=== PATIENT | female | born 1960 | race African-American/Black ===

== ENCOUNTER 2016-07-27 20:45 | Emergency (ER) | payer MEDICARE, MEDICAID ==
[~2016-07-27] VITALS: Ht 149.9 cm; Wt 53.0 kg
[~2016-07-27 20:45] MED LIST: CARI350T PO; CHOL50006 PO; EFAV1TAB3; FURO-151 PO; LISINOPRIL PO; METO-300 PO; MULT-1146 PO; OXYC-662 PO; PROAIR INHALER INH; VITAMIN B12 IM; [UNRECOGNIZED DRUG - CODE] SQ
[2016-07-27] MEDS ORDERED: HYDROCODONE/ACETAMINOPHEN 10/325MG TABLET PO ONE (23:15)
[2016-07-27 23:51] VITALS: BP 110/64
== END 2016-07-27 23:56 | disposition home or self-care (01) ==
LOC: ER 20:49
DX: K40.90 Unilateral inguinal hernia, without obstruction or gangrene, not specified as recurrent (principal); I11.0 Hypertensive heart disease with heart failure; I50.9 Heart failure, unspecified; Z98.51 Tubal ligation status; Z88.2 Allergy status to sulfonamides; Z91.041 Radiographic dye allergy status; Z79.899 Other long term (current) drug therapy
CPT/HCPCS: 99283

== ENCOUNTER 2016-08-12 09:31 | Emergency (ER) | payer MEDICARE, MEDICAID ==
[~2016-08-12] VITALS: Ht 165.1 cm; Wt 60.0 kg
[2016-08-12] MEDS ORDERED: MEGE400O PO (10:33)
[2016-08-12] MEDS ORDERED: DEXAMETHASONE 10MG/ML 1ML VIAL IM ONE (11:15)
[2016-08-12] MEDS ORDERED: KETOROLAC 60MG/2ML VIAL IM ONE (11:15)
[2016-08-12] MEDS ORDERED: LORAZEPAM 0.5MG TABLET PO ONE (11:15)
[2016-08-12 12:56] VITALS: BP 152/83
== END 2016-08-12 14:26 | disposition home or self-care (01) ==
LOC: ER 09:38
DX: M54.40 Lumbago with sciatica, unspecified side (principal); I11.0 Hypertensive heart disease with heart failure; I50.9 Heart failure, unspecified; Z88.2 Allergy status to sulfonamides; Z91.041 Radiographic dye allergy status; Z91.013 Allergy to seafood; Z79.899 Other long term (current) drug therapy; Z98.51 Tubal ligation status
CPT/HCPCS: 96372; 99284; J1100; J1885

== ENCOUNTER 2019-08-29 20:42 | Emergency (ER) | payer MEDICARE, MEDICAID ==
[~2019-08-29] VITALS: Ht 149.9 cm; Wt 63.0 kg
[~2019-08-29 20:42] MED LIST changes: -CARI350T PO; +CARI350T28 PO; +MEGE400O PO; -METO-300 PO; +METO-411 PO
[2019-08-29 22:59] LABS: BASOPHILS % 0.7 % (0.0-2.0); HEMATOCRIT. 40.6 % (36.0-48.0); HEMOGLOBIN. 13.6 g/dL (12.0-16.0); LYMPHOCYTES % 45.1 % (20.0-50.0); MEAN CORPUSCULAR HEMOGLOBIN 29.8 pg (28.0-32.0); MEAN CORPUSCULAR VOLUME 89.3 fL (81.0-99.0); MEAN PLATELET VOLUME 8.4 fl (7.4-10.4); MONOCYTES % 6.5 % (2.0-8.0); NEUTROPHILS % 45.7 % (40.0-76.0); PLATELET 341 x1000/uL (130-400); RED BLOOD CELL COUNT 4.55 mill/uL (4.2-5.4); RED CELL DISTRIBUTION WIDTH 14.4 % (11.6-14.6)
[2019-08-29 23:05] LABS: CHLORIDE 103 mEq/L (98-107)
[2019-08-29] MEDS ORDERED: IBUPROFEN 600MG TABLET PO STA (23:34)
[2019-08-29] MEDS ORDERED: ALBUTEROL 6.7GM HFA INHALER ORI ONE (23:45)
[2019-08-30 02:31] VITALS: BP 156/89
== END 2019-08-30 02:32 | disposition home or self-care (01) ==
LOC: ER 20:42
DX: J20.9 Acute bronchitis, unspecified (principal); E87.6 Hypokalemia; Z98.51 Tubal ligation status; Z98.890 Other specified postprocedural states; Z79.899 Other long term (current) drug therapy; Z88.2 Allergy status to sulfonamides; Z91.041 Radiographic dye allergy status; Z20.828 Contact with and (suspected) exposure to other viral communicable diseases
CPT/HCPCS: 36415; 71045; 80053; 83880; 84484; 85025; 85044; 87635; 87804; 93005; 99285

== ENCOUNTER → 2020-02-03 | Outpatient (CLI) | payer MEDICARE, MEDICAID | END | disposition home or self-care (01) | LOC: LAB 08:15 | PROVIDERS: ATTEND Family Medicine | DX: Z20.828 Contact with and (suspected) exposure to other viral communicable diseases (principal) | CPT/HCPCS: C9803; U0003 ==

== ENCOUNTER → 2020-02-05 | Outpatient (CLI) | payer MEDICARE, MEDICAID | END | disposition home or self-care (01) | LOC: MAMMO 12:43 | PROVIDERS: ATTEND Family Medicine | DX: N60.02 Solitary cyst of left breast (principal); N63.20 Unspecified lump in the left breast, unspecified quadrant; N63.10 Unspecified lump in the right breast, unspecified quadrant | CPT/HCPCS: 76642; 77066 ==

== ENCOUNTER 2020-03-18 14:19 | Emergency (ER) | payer MEDICARE, MEDICAID ==
[~2020-03-18] VITALS: Ht 157.5 cm; Wt 53.0 kg
[2020-03-18] MEDS ORDERED: KETOROLAC 30MG/ML VIAL IV STA (15:53)
[2020-03-18] MEDS ORDERED: SODIUM CHLORIDE 0.9% 1,000 ML IV ONE (16:00)
[2020-03-18 16:07] LABS: BASOPHILS % 2.7 % (0.0-2.0); EOSINOPHILS % 1.5 % (0.0-5.0); HEMATOCRIT. 39.5 % (36.0-48.0); HEMOGLOBIN. 13.3 g/dL (12.0-16.0); LYMPHOCYTES % 61.4 % (20.0-50.0); MEAN CORPUSCULAR HEMOGLOBIN 30.5 pg (28.0-32.0); MEAN CORPUSCULAR VOLUME 90.7 fL (81.0-99.0); MEAN PLATELET VOLUME 9.5 fl (7.4-10.4); NEUTROPHILS % 25.4 % (40.0-76.0); PLATELET 236 x1000/uL (130-400); RED BLOOD CELL COUNT 4.35 mill/uL (4.2-5.4); RED CELL DISTRIBUTION WIDTH 14.6 % (11.6-14.6)
[2020-03-18 16:15] LABS: PROTHROMBIN TIME 10.4 sec (9.6-11.0)
[2020-03-18 16:24] LABS: CHLORIDE 103 mEq/L (98-107)
[2020-03-18 16:34] LABS: CLARITY URINE CLOUDY (CLEAR); COLOR URINE YELLOW (YELLOW); KETONES URINE NEGATIVE (NEGATIVE); LEUKOCYTE ESTERASE URINE TRACE (NEGATIVE); NITRITE URINE NEGATIVE (NEGATIVE); OCCULT BLOOD URINE NEGATIVE (NEGATIVE); PROTEIN URINE NEGATIVE (NEGATIVE); SPECIFIC GRAVITY URINE 1.012 (1.005-1.030); UROBILINOGEN URINE 0.2 E.U./dL (0.2-1.0)
[2020-03-18 18:35] VITALS: BP 144/83
== END 2020-03-18 19:03 | disposition home or self-care (01) ==
LOC: ER 14:19
DX: R19.7 Diarrhea, unspecified (principal); I11.0 Hypertensive heart disease with heart failure; I50.9 Heart failure, unspecified; D57.1 Sickle-cell disease without crisis; B20 Human immunodeficiency virus [HIV] disease; Z88.2 Allergy status to sulfonamides; Z98.51 Tubal ligation status; Z91.041 Radiographic dye allergy status; Z98.890 Other specified postprocedural states; Z03.818 Encounter for observation for suspected exposure to other biological agents ruled out
CPT/HCPCS: 36415; 71045; 76705; 80053; 81003; 85025; 85610; 87635; 96361; 96374; 99285; C9803; J1885; J7030

== ENCOUNTER 2020-12-16 04:48 | Inpatient (IN) | payer MEDICARE, MEDICAID ==
[~2020-12-16] VITALS: Ht 149.9 cm; Wt 53.7 kg
[~2020-12-16 04:48] MED LIST changes: +ASPI-1497 PO; -EFAV1TAB3; -LISINOPRIL PO; +LOSA100T32 PO; -MEGE400O PO; -METO-411 PO; +OXYC-105 PO; -OXYC-662 PO; +PREVAGEN PO; -PROAIR INHALER INH; +VITAMIN B-12 IM; -VITAMIN B12 IM; -[UNRECOGNIZED DRUG - CODE] SQ
[2020-12-16] MEDS ORDERED: MORPHINE SULFATE 4 MG/ML CPJ (NOT FOR IM USE) IV STA (05:43)
[2020-12-16 06:07] LABS: BASOPHILS % 0.2 % (0.0-2.0); EOSINOPHILS % 0.1 % (0.0-5.0); HEMOGLOBIN. 12.5 g/dL (12.0-16.0); MEAN CORPUSCULAR VOLUME 89.6 fL (81.0-99.0); MEAN PLATELET VOLUME 8.4 fl (7.4-10.4); MONOCYTES % 5.1 % (2.0-8.0); NEUTROPHILS % 86.6 % (40.0-76.0); PLATELET 223 x1000/uL (130-400); RED BLOOD CELL COUNT 4.02 mill/uL (4.2-5.4); RED CELL DISTRIBUTION WIDTH 13.7 % (11.6-14.6)
[2020-12-16 06:13] LABS: CHLORIDE 101 mEq/L (98-107)
[2020-12-16 06:26] LABS: PROTHROMBIN TIME 10.7 sec (9.6-11.0)
[2020-12-16 07:09] LABS: CLARITY URINE CLEAR (CLEAR); COLOR URINE DK YELLOW (YELLOW); KETONES URINE TRACE (NEGATIVE); LEUKOCYTE ESTERASE URINE NEGATIVE (NEGATIVE); NITRITE URINE NEGATIVE (NEGATIVE); OCCULT BLOOD URINE NEGATIVE (NEGATIVE); PH URINE 5.5 (4.5-8.0); PROTEIN URINE TRACE (NEGATIVE); SPECIFIC GRAVITY URINE 1.039 (1.005-1.030); UROBILINOGEN URINE 0.2 E.U./dL (0.2-1.0)
[2020-12-16] MEDS ORDERED: METRONIDAZOLE 500 MG PREMIX 100 ML IV ONE (07:45)
[2020-12-16] MEDS ORDERED: POTASSIUM CHLORIDE 20MEQ TABLET SR PO ONE (07:45)
[2020-12-16] MEDS ORDERED: LEVOFLOXACIN 750MG PREMIX 150 ML IV ONE (07:45)
[2020-12-16] MEDS ORDERED: ONDANSETRON HCL 4MG/2ML INJ IV PRN (11:30)
[2020-12-16] MEDS ORDERED: DEXT 5%/0.9% NACL 500 ML IV ONE (12:00)
[2020-12-16 12:05] LABS: PHOSPHORUS 2.9 mg/dL (2.5-4.9)
[2020-12-16] MEDS ORDERED: POTASSIUM CHLORIDE INJ 40 MEQ in DEXT 5% WATER 250 ML IV NR (12:30)
[2020-12-16] MEDS ORDERED: PIPERACILLIN/TAZOBACTAM 3.375G in DEXT 5% WATER 50ML IV SCH (13:00)
[2020-12-16] MEDS ORDERED: PIPERACILLIN/TAZOBACTAM 3.375 G/VIAL IV SCH (14:00)
[2020-12-16] MEDS ORDERED: MORPHINE SULFATE 2 MG/ML CPJ (NOT FOR IM USE) IV NR (18:00)
[2020-12-16] MEDS ORDERED: ACETAMINOPHEN 650MG SUPP PR PRN (18:15)
[2020-12-16] MEDS ORDERED: CLONIDINE 0.1MG TABLET PO PRN (18:15)
[2020-12-16] MEDS ORDERED: PIPERACILLIN/TAZ 3.375G PREMIX 50 ML IV SCH (19:00)
[2020-12-16 19:39] LABS: CHLORIDE 106 mEq/L (98-107)
[2020-12-16] MEDS: ENOXAPARIN 40MG/0.4ML SYR SUBCUT SCH (20:30)
[2020-12-17 01:48] LABS: HEMATOCRIT. 35.9 % (36.0-48.0); HEMOGLOBIN. 12.3 g/dL (12.0-16.0); MEAN CORPUSCULAR HEMOGLOBIN 30.3 pg (28.0-32.0); MEAN PLATELET VOLUME 8.9 fl (7.4-10.4); PLATELET 211 x1000/uL (130-400); RED BLOOD CELL COUNT 4.04 mill/uL (4.2-5.4); RED CELL DISTRIBUTION WIDTH 13.6 % (11.6-14.6)
[2020-12-17 02:04] VITALS: BP 150/66
[2020-12-17 03:12] LABS: PLATELET ESTIMATE NORMAL
[2020-12-17] MEDS ORDERED: PIPERACILLIN/TAZ 3.375G PREMIX 50 ML IV SCH (04:00)
[2020-12-17] MEDS: PIPERACILLIN/TAZOBACTAM 3.375G in DEXT 5% WATER 50ML IV SCH ×4 (04:53→21:51)
[2020-12-17] MEDS ORDERED: NALOXONE HCL 0.4MG/ML VIAL IV PRN (07:30)
[2020-12-17 08:00] VITALS: BP 135/69
[2020-12-17] MEDS: LOSARTAN POTASSIUM 50 MG TABLET PO SCH (08:23)
[2020-12-17] MEDS: FUROSEMIDE 40MG/4ML VIAL IVP SCH (08:23)
[2020-12-17] MEDS: MORPHINE SULFATE 2 MG/ML CPJ (NOT FOR IM USE) IV PRN ×3 (08:23→21:52)
[2020-12-17] MEDS: ASPIRIN 81MG TABLET PO SCH (08:23)
[2020-12-17 10:45] LABS: BASOPHILS % 0.1 % (0.0-2.0); HEMATOCRIT. 42.4 % (36.0-48.0); LYMPHOCYTES % 7.8 % (20.0-50.0); MEAN CORPUSCULAR HEMOGLOBIN 30.2 pg (28.0-32.0); MEAN CORPUSCULAR VOLUME 91.5 fL (81.0-99.0); MEAN PLATELET VOLUME 8.8 fl (7.4-10.4); MONOCYTES % 4.7 % (2.0-8.0); NEUTROPHILS % 87.4 % (40.0-76.0); PLATELET 222 x1000/uL (130-400); RED BLOOD CELL COUNT 4.63 mill/uL (4.2-5.4); RED CELL DISTRIBUTION WIDTH 14.1 % (11.6-14.6)
[2020-12-17 12:00] VITALS: BP 108/60
[2020-12-17 12:11] LABS: CHLORIDE 105 mEq/L (98-107)
[2020-12-17 12:22] LABS: PHOSPHORUS 2.3 mg/dL (2.5-4.9)
[2020-12-17 16:00] VITALS: BP 135/50
[2020-12-17] MEDS: ACETAMINOPHEN 650MG SUPP PR PRN (16:38)
[2020-12-17] MEDS: METRONIDAZOLE 500 MG PREMIX 100 ML IV SCH (18:24)
[2020-12-17] MEDS: ENOXAPARIN 40MG/0.4ML SYR SUBCUT SCH (18:31)
[2020-12-17 20:00] VITALS: BP 129/54
[2020-12-18] VITALS: BP 158/56
[2020-12-18] MEDS: ACETAMINOPHEN 650MG SUPP PR PRN (00:28)
[2020-12-18] MEDS: DEXT 5%/0.9% NACL 1,000 ML IV SCH ×3 (00:33→23:55)
[2020-12-18] MEDS: METRONIDAZOLE 500 MG PREMIX 100 ML IV SCH ×3 (01:42→17:58)
[2020-12-18] MEDS: MORPHINE SULFATE 2 MG/ML CPJ (NOT FOR IM USE) IV PRN ×6 (02:38→23:55)
[2020-12-18] MEDS: PIPERACILLIN/TAZOBACTAM 3.375G in DEXT 5% WATER 50ML IV SCH ×4 (03:51→18:18)
[2020-12-18 04:00] VITALS: BP 121/59
[2020-12-18 08:00] VITALS: BP 125/53
[2020-12-18] MEDS: FOLIC ACID 1MG TABLET PO SCH (09:00)
[2020-12-18] MEDS: ASPIRIN 81MG TABLET PO SCH (09:00)
[2020-12-18] MEDS: LOSARTAN POTASSIUM 50 MG TABLET PO SCH (09:00)
[2020-12-18] MEDS: FUROSEMIDE 40MG/4ML VIAL IVP SCH (09:02)
[2020-12-18 12:00] VITALS: BP 125/53
[2020-12-18] MEDS ORDERED: DIPHENHYDRAMINE 50MG/ML VIAL IV PRN (13:00)
[2020-12-18] MEDS ORDERED: LIDOCAINE HCL 1% 20ML VIAL (Pyxis) INJ ONE (14:45)
[2020-12-18 16:00] VITALS: BP 125/53
[2020-12-18 17:20] LABS: BASOPHILS % 0.4 % (0.0-2.0); EOSINOPHILS % 0.1 % (0.0-5.0); HEMATOCRIT. 35.1 % (36.0-48.0); LYMPHOCYTES % 9.8 % (20.0-50.0); MEAN CORPUSCULAR HEMOGLOBIN 30.5 pg (28.0-32.0); MEAN PLATELET VOLUME 9.4 fl (7.4-10.4); MONOCYTES % 6.2 % (2.0-8.0); NEUTROPHILS % 83.5 % (40.0-76.0); PLATELET 245 x1000/uL (130-400); RED BLOOD CELL COUNT 3.94 mill/uL (4.2-5.4); RED CELL DISTRIBUTION WIDTH 13.3 % (11.6-14.6)
[2020-12-18 17:50] LABS: CHLORIDE 104 mEq/L (98-107)
[2020-12-18 20:00] VITALS: BP 134/53
[2020-12-18] MEDS: ENOXAPARIN 40MG/0.4ML SYR SUBCUT SCH (20:58)
[2020-12-18] MEDS ORDERED: IOHEXOL-300 100 ML BOTTLE ONE (23:22)
[2020-12-19] VITALS: BP 143/104
[2020-12-19] MEDS: METRONIDAZOLE 500 MG PREMIX 100 ML IV SCH ×3 (01:08→17:10)
[2020-12-19] MEDS: PIPERACILLIN/TAZOBACTAM 3.375G in DEXT 5% WATER 50ML IV SCH ×4 (03:07→22:00)
[2020-12-19 04:00] VITALS: BP 119/58
[2020-12-19 08:00] VITALS: BP 142/61
[2020-12-19] MEDS: FUROSEMIDE 40MG/4ML VIAL IVP SCH (08:54)
[2020-12-19] MEDS: LOSARTAN POTASSIUM 50 MG TABLET PO SCH (08:54)
[2020-12-19] MEDS: FOLIC ACID 1MG TABLET PO SCH (08:54)
[2020-12-19] MEDS: ASPIRIN 81MG TABLET PO SCH (08:55)
[2020-12-19] MEDS: MORPHINE SULFATE 2 MG/ML CPJ (NOT FOR IM USE) IV PRN ×3 (08:56→20:23)
[2020-12-19] MEDS ORDERED: POTASSIUM CHLORIDE INJ 40 MEQ in DEXT 5% WATER 250 ML IV SCH (11:00)
[2020-12-19 12:00] VITALS: BP 113/63
[2020-12-19] MEDS: DEXT 5%/0.9% NACL 1,000 ML IV SCH (14:33)
[2020-12-19 15:32] LABS: BASOPHILS % 0.4 % (0.0-2.0); EOSINOPHILS % 0.6 % (0.0-5.0); HEMATOCRIT. 31.9 % (36.0-48.0); HEMOGLOBIN. 10.8 g/dL (12.0-16.0); LYMPHOCYTES % 22.9 % (20.0-50.0); MEAN CORPUSCULAR HEMOGLOBIN 30.7 pg (28.0-32.0); MEAN CORPUSCULAR VOLUME 90.2 fL (81.0-99.0); MEAN PLATELET VOLUME 8.8 fl (7.4-10.4); MONOCYTES % 8.7 % (2.0-8.0); NEUTROPHILS % 67.4 % (40.0-76.0); PLATELET 254 x1000/uL (130-400); RED BLOOD CELL COUNT 3.53 mill/uL (4.2-5.4); RED CELL DISTRIBUTION WIDTH 13.5 % (11.6-14.6)
[2020-12-19 15:36] LABS: CHLORIDE 109 mEq/L (98-107)
[2020-12-19 16:00] VITALS: BP 120/68
[2020-12-19 20:00] VITALS: BP 108/52
[2020-12-19] MEDS: ENOXAPARIN 40MG/0.4ML SYR SUBCUT SCH (20:11)
[2020-12-20] VITALS (7 sets, daily range): BP systolic 99–125; BP diastolic 43–62
[2020-12-20] MEDS: METRONIDAZOLE 500 MG PREMIX 100 ML IV SCH ×2 (01:21→11:44)
[2020-12-20] MEDS: MORPHINE SULFATE 2 MG/ML CPJ (NOT FOR IM USE) IV PRN ×4 (01:22→20:17)
[2020-12-20] MEDS: PIPERACILLIN/TAZOBACTAM 3.375G in DEXT 5% WATER 50ML IV SCH ×3 (05:44→22:20)
[2020-12-20] MEDS: DEXT 5%/0.9% NACL 1,000 ML IV SCH (05:44)
[2020-12-20 06:01] LABS: CHLORIDE 114 mEq/L (98-107)
[2020-12-20 06:21] LABS: BASOPHILS % 0.5 % (0.0-2.0); EOSINOPHILS % 1.9 % (0.0-5.0); HEMATOCRIT. 27.2 % (36.0-48.0); HEMOGLOBIN. 9.2 g/dL (12.0-16.0); LYMPHOCYTES % 38.9 % (20.0-50.0); MEAN CORPUSCULAR VOLUME 91.8 fL (81.0-99.0); MEAN PLATELET VOLUME 8.9 fl (7.4-10.4); MONOCYTES % 9.3 % (2.0-8.0); NEUTROPHILS % 49.4 % (40.0-76.0); PLATELET 204 x1000/uL (130-400); RED BLOOD CELL COUNT 2.97 mill/uL (4.2-5.4); RED CELL DISTRIBUTION WIDTH 13.4 % (11.6-14.6)
[2020-12-20] MEDS: ASPIRIN 81MG TABLET PO SCH (09:00)
[2020-12-20] MEDS: LOSARTAN POTASSIUM 50 MG TABLET PO SCH (09:00)
[2020-12-20] MEDS: FOLIC ACID 1MG TABLET PO SCH (09:00)
[2020-12-20] MEDS: FUROSEMIDE 40MG/4ML VIAL IVP SCH (10:33)
[2020-12-20] MEDS: POTASSIUM CHLORIDE INJ 60 MEQ in SODIUM CHLORIDE 0.9% 500 ML IV NR ×2 (13:32→13:38)
[2020-12-20] MEDS ORDERED: IOHEXOL-300 100 ML BOTTLE ONE (14:23)
[2020-12-21] MEDS: METRONIDAZOLE 500 MG PREMIX 100 ML IV SCH ×3 (01:08→17:53)
[2020-12-21] MEDS: MORPHINE SULFATE 2 MG/ML CPJ (NOT FOR IM USE) IV PRN ×4 (01:31→21:51)
[2020-12-21] MEDS: PIPERACILLIN/TAZOBACTAM 3.375G in DEXT 5% WATER 50ML IV SCH ×3 (03:39→17:54)
[2020-12-21 04:00] VITALS: BP 99/48
[2020-12-21 06:30] VITALS: BP 140/65
[2020-12-21] MEDS: DEXT 5%/0.9% NACL 1,000 ML IV SCH ×2 (06:40→19:50)
[2020-12-21 08:00] VITALS: BP 144/59
[2020-12-21 08:05] LABS: CHLORIDE 112 mEq/L (98-107)
[2020-12-21 08:14] LABS: BASOPHILS % 0.8 % (0.0-2.0); HEMATOCRIT. 27.9 % (36.0-48.0); HEMOGLOBIN. 9.4 g/dL (12.0-16.0); LYMPHOCYTES % 41.3 % (20.0-50.0); MEAN CORPUSCULAR HEMOGLOBIN 30.7 pg (28.0-32.0); MEAN PLATELET VOLUME 8.8 fl (7.4-10.4); MONOCYTES % 12.5 % (2.0-8.0); NEUTROPHILS % 42.4 % (40.0-76.0); PLATELET 208 x1000/uL (130-400); RED BLOOD CELL COUNT 3.06 mill/uL (4.2-5.4); RED CELL DISTRIBUTION WIDTH 13.3 % (11.6-14.6)
[2020-12-21] MEDS: FOLIC ACID 1MG TABLET PO SCH (09:00)
[2020-12-21] MEDS: ASPIRIN 81MG TABLET PO SCH (09:34)
[2020-12-21] MEDS: FUROSEMIDE 40MG/4ML VIAL IVP SCH (09:35)
[2020-12-21] MEDS: LOSARTAN POTASSIUM 50 MG TABLET PO SCH (09:35)
[2020-12-21] MEDS ORDERED: BARIUM SULFATE 450ML ORAL SUSP PO SCH (11:30)
[2020-12-21 12:00] VITALS: BP 112/50
[2020-12-21] MEDS: METOCLOPRAMIDE HCL 10MG/2ML VIAL IV SCH ×2 (13:45→17:53)
[2020-12-21] MEDS ORDERED: DIPHENHYDRAMINE 50MG/ML VIAL IV NR (15:45)
[2020-12-21 16:00] VITALS: BP 103/50
[2020-12-21] MEDS ORDERED: DIATR MEGLU/DIATRIZOATE SOLN 30ML PO NR (17:00)
[2020-12-21 20:00] VITALS: BP 135/43
[2020-12-22] VITALS: BP 104/38
[2020-12-22] MEDS: METOCLOPRAMIDE HCL 10MG/2ML VIAL IV SCH ×5 (00:59→23:51)
[2020-12-22] MEDS: METRONIDAZOLE 500 MG PREMIX 100 ML IV SCH ×2 (02:54→10:15)
[2020-12-22 04:00] VITALS: BP 160/68
[2020-12-22 08:00] VITALS: BP 134/47
[2020-12-22 08:18] LABS: CHLORIDE 108 mEq/L (98-107)
[2020-12-22 08:23] LABS: PHOSPHORUS 2.1 mg/dL (2.5-4.9)
[2020-12-22 08:33] LABS: BASOPHILS % 1.1 % (0.0-2.0); EOSINOPHILS % 1.1 % (0.0-5.0); LYMPHOCYTES % 21.7 % (20.0-50.0); MEAN CORPUSCULAR HEMOGLOBIN 29.9 pg (28.0-32.0); MEAN CORPUSCULAR VOLUME 90.3 fL (81.0-99.0); MEAN PLATELET VOLUME 9.2 fl (7.4-10.4); MONOCYTES % 8.8 % (2.0-8.0); NEUTROPHILS % 67.3 % (40.0-76.0); PLATELET 276 x1000/uL (130-400); RED BLOOD CELL COUNT 3.65 mill/uL (4.2-5.4); RED CELL DISTRIBUTION WIDTH 13.6 % (11.6-14.6)
[2020-12-22 08:35] LABS: HEMOGLOBIN. 10.9 g/dL (12.0-16.0)
[2020-12-22 08:36] LABS: HEMATOCRIT. 32.9 % (36.0-48.0)
[2020-12-22] MEDS: FOLIC ACID 1MG TABLET PO SCH (10:15)
[2020-12-22] MEDS: FUROSEMIDE 40MG/4ML VIAL IVP SCH (10:16)
[2020-12-22] MEDS: LOSARTAN POTASSIUM 50 MG TABLET PO SCH (10:16)
[2020-12-22] MEDS: ASPIRIN 81MG TABLET PO SCH (10:16)
[2020-12-22] MEDS: DEXT 5%/0.9% NACL 1,000 ML IV SCH ×2 (10:20→21:12)
[2020-12-22] MEDS ORDERED: MAGNESIUM 2 G PREMIX 50 ML IV ONE (10:30)
[2020-12-22] MEDS ORDERED: POTASSIUM PHOS,M-BASIC-D-BASIC 20 MMOL in DEXT 5% WATER 243.3333 ML IV ONE (11:00)
[2020-12-22] MEDS: MORPHINE SULFATE 2 MG/ML CPJ (NOT FOR IM USE) IV PRN ×3 (11:49→21:12)
[2020-12-22 12:00] VITALS: BP 133/58
[2020-12-22 16:00] VITALS: BP 127/57
[2020-12-22] MEDS: PIPERACILLIN/TAZOBACTAM 3.375 G in DEXTROSE 5% WATER 50 ML IV SCH ×2 (18:17→21:12)
[2020-12-22 20:00] VITALS: BP 124/67
[2020-12-23] VITALS: BP 119/53
[2020-12-23 04:00] VITALS: BP 150/77
[2020-12-23 04:07] LABS: OVA & PARASITE EXAM Final report (.)
[2020-12-23] MEDS: MORPHINE SULFATE 2 MG/ML CPJ (NOT FOR IM USE) IV PRN ×4 (05:24→21:12)
[2020-12-23] MEDS: METOCLOPRAMIDE HCL 10MG/2ML VIAL IV SCH ×3 (05:24→17:10)
[2020-12-23 08:00] VITALS: BP 116/57
[2020-12-23 08:24] LABS: EOSINOPHILS % 1.6 % (0.0-5.0); HEMATOCRIT. 32.2 % (36.0-48.0); HEMOGLOBIN. 10.6 g/dL (12.0-16.0); LYMPHOCYTES % 25.3 % (20.0-50.0); MEAN CORPUSCULAR HEMOGLOBIN 30.1 pg (28.0-32.0); MEAN CORPUSCULAR VOLUME 91.3 fL (81.0-99.0); MONOCYTES % 12.5 % (2.0-8.0); NEUTROPHILS % 59.6 % (40.0-76.0); PLATELET 286 x1000/uL (130-400); RED BLOOD CELL COUNT 3.53 mill/uL (4.2-5.4); RED CELL DISTRIBUTION WIDTH 13.3 % (11.6-14.6)
[2020-12-23 08:40] LABS: CHLORIDE 111 mEq/L (98-107)
[2020-12-23] MEDS: FUROSEMIDE 40MG/4ML VIAL IVP SCH (10:26)
[2020-12-23] MEDS: LOSARTAN POTASSIUM 50 MG TABLET PO SCH (10:27)
[2020-12-23] MEDS: FOLIC ACID 1MG TABLET PO SCH (10:27)
[2020-12-23] MEDS: ASPIRIN 81MG TABLET PO SCH (10:28)
[2020-12-23] MEDS: PIPERACILLIN/TAZOBACTAM 3.375 G in DEXTROSE 5% WATER 50 ML IV SCH (10:28)
[2020-12-23] MEDS: DEXT 5%/0.9% NACL 1,000 ML IV SCH (10:50)
[2020-12-23 12:00] VITALS: BP 112/56
[2020-12-23 16:00] VITALS: BP 119/68
[2020-12-23] MEDS: PIPERACILLIN/TAZOBACTAM 3.375G in DEXT 5% WATER 50ML IV SCH ×2 (16:54→22:11)
[2020-12-23 20:00] VITALS: BP 127/67
[2020-12-24] VITALS: BP 121/59
[2020-12-24] MEDS: DEXT 5%/0.9% NACL 1,000 ML IV SCH (00:53)
[2020-12-24] MEDS: METOCLOPRAMIDE HCL 10MG/2ML VIAL IV SCH ×3 (00:53→12:15)
[2020-12-24 04:00] VITALS: BP 119/54
[2020-12-24] MEDS: MORPHINE SULFATE 2 MG/ML CPJ (NOT FOR IM USE) IV PRN (04:17)
[2020-12-24] MEDS: PIPERACILLIN/TAZOBACTAM 3.375G in DEXT 5% WATER 50ML IV SCH (05:52)
[2020-12-24 08:00] VITALS: BP 136/73
[2020-12-24 08:02] LABS: BASOPHILS % 1.1 % (0.0-2.0); EOSINOPHILS % 2.6 % (0.0-5.0); HEMATOCRIT. 30.3 % (36.0-48.0); HEMOGLOBIN. 10.1 g/dL (12.0-16.0); LYMPHOCYTES % 28.4 % (20.0-50.0); MEAN CORPUSCULAR HEMOGLOBIN 30.1 pg (28.0-32.0); MEAN CORPUSCULAR VOLUME 90.2 fL (81.0-99.0); MEAN PLATELET VOLUME 8.8 fl (7.4-10.4); MONOCYTES % 12.7 % (2.0-8.0); NEUTROPHILS % 55.2 % (40.0-76.0); PLATELET 309 x1000/uL (130-400); RED BLOOD CELL COUNT 3.37 mill/uL (4.2-5.4); RED CELL DISTRIBUTION WIDTH 13.4 % (11.6-14.6)
[2020-12-24 08:36] LABS: CHLORIDE 110 mEq/L (98-107)
[2020-12-24] MEDS: ASPIRIN 81MG TABLET PO SCH (12:11)
[2020-12-24] MEDS: FUROSEMIDE 40MG/4ML VIAL IVP SCH (12:12)
[2020-12-24] MEDS: FOLIC ACID 1MG TABLET PO SCH (12:12)
[2020-12-24] MEDS: LOSARTAN POTASSIUM 50 MG TABLET PO SCH (12:13)
[2020-12-24 12:45] VITALS: BP 136/73
[2020-12-25 04:08] LABS: OVA & PARASITE EXAM Final report (.)
[2020-12-28 07:07] LABS: HGB A2 3.1 % (1.8-3.2)
== END 2020-12-24 13:52 | disposition home health service (06) | DRG 871 ==
LOC: ER 04:48 → MICUSO 08:34 → 8WST 23:36
PROVIDERS: ADMIT Internal Medicine Nephrology; ATTEND Internal Medicine Nephrology
PROC: 02HV33Z Insertion of Infusion Device into Superior Vena Cava, Percutaneous Approach (ICD-10-PCS; principal; 2020-12-18)
PROC: B548ZZA Ultrasonography of Superior Vena Cava, Guidance (ICD-10-PCS; 2020-12-18)
DX: A41.9 Sepsis, unspecified organism (principal); I50.33 Acute on chronic diastolic (congestive) heart failure; I31.3 Pericardial effusion (noninflammatory); K56.600 Partial intestinal obstruction, unspecified as to cause; K52.9 Noninfective gastroenteritis and colitis, unspecified; E87.6 Hypokalemia; K57.30 Diverticulosis of large intestine without perforation or abscess without bleeding; I45.81 Long QT syndrome; C50.912 Malignant neoplasm of unspecified site of left female breast; D57.1 Sickle-cell disease without crisis; Z20.822 Contact with and (suspected) exposure to COVID-19; I11.0 Hypertensive heart disease with heart failure; Z80.9 Family history of malignant neoplasm, unspecified; Z79.82 Long term (current) use of aspirin; Z85.3 Personal history of malignant neoplasm of breast; Z88.2 Allergy status to sulfonamides; Z91.041 Radiographic dye allergy status; Z79.1 Long term (current) use of non-steroidal anti-inflammatories (NSAID); Z79.899 Other long term (current) drug therapy
CPT/HCPCS: 36415; 71045; 74018; 74176; 74177; 76700; 76937; 80048; 80053; 81003; 82270; 83021; 83036; 83605; 83735; 83880; 84100; 85025; 85660; 86300; 87015; 87045; 87177; 87209; 87426; 87427; 87449; 93005; 93306; 93970; 97161; 99285; J1200; J1650; J1940; J1956; J2270; J2405; J2543; J2765; J3475; J3480; J3490; J7040; J7042; J7060; Q9963; Q9967

== ENCOUNTER 2020-12-28 20:14 | Inpatient (IN) | payer MEDICARE, MEDICAID ==
[~2020-12-28] VITALS: Ht 149.9 cm; Wt 50.8 kg
[2020-12-28] MEDS ORDERED: ONDANSETRON HCL 4MG/2ML INJ IV STA (22:46)
[2020-12-28] MEDS ORDERED: MORPHINE SULFATE 4 MG/ML CPJ (NOT FOR IM USE) IV STA (22:46)
[2020-12-28 23:26] LABS: BASOPHILS % 0.7 % (0.0-2.0); EOSINOPHILS % 1.4 % (0.0-5.0); HEMATOCRIT. 35.8 % (36.0-48.0); HEMOGLOBIN. 12.2 g/dL (12.0-16.0); MEAN CORPUSCULAR HEMOGLOBIN 30.6 pg (28.0-32.0); MEAN CORPUSCULAR VOLUME 90.1 fL (81.0-99.0); MEAN PLATELET VOLUME 7.7 fl (7.4-10.4); MONOCYTES % 9.1 % (2.0-8.0); NEUTROPHILS % 54.8 % (40.0-76.0); PLATELET 558 x1000/uL (130-400); RED BLOOD CELL COUNT 3.97 mill/uL (4.2-5.4); RED CELL DISTRIBUTION WIDTH 13.6 % (11.6-14.6)
[2020-12-28 23:30] LABS: CHLORIDE 102 mEq/L (98-107)
[2020-12-29] VITALS: BP 118/57
[2020-12-29] MEDS ORDERED: MAGNESIUM CITRATE 300ML SOLUTION PO ONE (01:15)
[2020-12-29] MEDS ORDERED: NA PHOS,M-B/NA PHOS,DI-BA ENEMA 118ML PR ONE (01:15)
[2020-12-29] MEDS ORDERED: ONDANSETRON HCL 4MG/2ML INJ IV PRN (01:45)
[2020-12-29] MEDS ORDERED: DOCUSATE SODIUM 100MG CAPSULE PO PRN (01:45)
[2020-12-29] MEDS ORDERED: DIPHENHYDRAMINE 50MG/ML VIAL IV PRN (01:45)
[2020-12-29] MEDS ORDERED: CLONIDINE 0.1MG TABLET PO PRN (01:45)
[2020-12-29] MEDS ORDERED: ACETAMINOPHEN 325MG TABLET PO PRN (01:45)
[2020-12-29] MEDS: MORPHINE SULFATE 2 MG/ML CPJ (NOT FOR IM USE) IV PRN ×4 (03:36→20:26)
[2020-12-29] MEDS: DEXT 5%/0.45% NACL 1000ML 1,000 ML IV SCH ×2 (03:36→10:43)
[2020-12-29] MEDS: LOSARTAN POTASSIUM 50 MG TABLET PO SCH (09:00)
[2020-12-29] MEDS ORDERED: FUROSEMIDE 40MG/4ML VIAL IVP SCH (09:00)
[2020-12-29 10:01] LABS: PARTIAL THROMBOPLASTIN TIME 26.3 sec (23.4-31.0); PROTHROMBIN TIME 10.7 sec (9.6-11.0)
[2020-12-29] MEDS: ENOXAPARIN 40MG/0.4ML SYR SUBCUT SCH (10:05)
[2020-12-29] MEDS: PANTOPRAZOLE SODIUM 40 MG/VIAL IV SCH (10:43)
[2020-12-29] MEDS: METRONIDAZOLE 500 MG PREMIX 100 ML IV SCH ×2 (10:43→18:26)
[2020-12-29] MEDS ORDERED: PIPERACILLIN/TAZOBACTAM 3.375 G in DEXTROSE 5% WATER 50 ML IV SCH (12:00)
[2020-12-29] MEDS ORDERED: NALOXONE HCL 0.4MG/ML VIAL IV PRN (13:45)
[2020-12-29] MEDS ORDERED: CARI250T PO (14:17)
[2020-12-29] MEDS: LEVOFLOXACIN 500MG PREMIX 100 ML IV SCH (15:57)
[2020-12-29 16:00] VITALS: BP 102/48
[2020-12-29 16:33] VITALS: BP 124/56
[2020-12-29 20:00] VITALS: BP 124/59
[2020-12-30] VITALS: BP 118/87
[2020-12-30] MEDS: METRONIDAZOLE 500 MG PREMIX 100 ML IV SCH ×3 (02:43→18:57)
[2020-12-30] MEDS: MORPHINE SULFATE 2 MG/ML CPJ (NOT FOR IM USE) IV PRN ×4 (02:43→18:28)
[2020-12-30 04:00] VITALS: BP 150/80
[2020-12-30 05:01] LABS: CLARITY URINE CLEAR (CLEAR); COLOR URINE YELLOW (YELLOW); KETONES URINE NEGATIVE (NEGATIVE); LEUKOCYTE ESTERASE URINE NEGATIVE (NEGATIVE); NITRITE URINE NEGATIVE (NEGATIVE); OCCULT BLOOD URINE NEGATIVE (NEGATIVE); PH URINE 6.5 (4.5-8.0); PROTEIN URINE NEGATIVE (NEGATIVE); SPECIFIC GRAVITY URINE 1.006 (1.005-1.030); UROBILINOGEN URINE 0.2 E.U./dL (0.2-1.0)
[2020-12-30 08:00] VITALS: BP 121/40
[2020-12-30] MEDS: PANTOPRAZOLE SODIUM 40 MG/VIAL IV SCH (09:25)
[2020-12-30] MEDS: LOSARTAN POTASSIUM 50 MG TABLET PO SCH (09:25)
[2020-12-30] MEDS: ENOXAPARIN 40MG/0.4ML SYR SUBCUT SCH (09:26)
[2020-12-30 10:50] LABS: CHLORIDE 108 mEq/L (98-107)
[2020-12-30 10:52] LABS: BASOPHILS % 0.9 % (0.0-2.0); EOSINOPHILS % 1.2 % (0.0-5.0); HEMATOCRIT. 33.1 % (36.0-48.0); HEMOGLOBIN. 11.2 g/dL (12.0-16.0); LYMPHOCYTES % 22.6 % (20.0-50.0); MEAN CORPUSCULAR HEMOGLOBIN 30.3 pg (28.0-32.0); MEAN CORPUSCULAR VOLUME 89.1 fL (81.0-99.0); MEAN PLATELET VOLUME 8.3 fl (7.4-10.4); MONOCYTES % 11.3 % (2.0-8.0); PLATELET 528 x1000/uL (130-400); RED BLOOD CELL COUNT 3.71 mill/uL (4.2-5.4); RED CELL DISTRIBUTION WIDTH 13.5 % (11.6-14.6)
[2020-12-30] MEDS ORDERED: SORBITOL 70% SOLN 30ML PO NR (11:30)
[2020-12-30] MEDS: DEXT 5%/0.45% NACL 1000ML 1,000 ML IV SCH (11:47)
[2020-12-30 12:00] VITALS: BP 132/48
[2020-12-30] MEDS ORDERED: POTASSIUM PHOS,M-BASIC-D-BASIC 20 MMOL in DEXT 5% WATER 243.3333 ML IV SCH (15:00)
[2020-12-30 16:00] VITALS: BP 118/46
[2020-12-30] MEDS: LEVOFLOXACIN 500MG PREMIX 100 ML IV SCH (17:48)
[2020-12-30 20:00] VITALS: BP 113/56
[2020-12-30] MEDS: MORPHINE SULFATE 4 MG/ML CPJ (NOT FOR IM USE) IV PRN (22:52)
[2020-12-31 00:26] VITALS: BP 118/58
[2020-12-31] MEDS: LORAZEPAM 2MG/ML CPJ IV PRN (00:50)
[2020-12-31] MEDS: METRONIDAZOLE 500 MG PREMIX 100 ML IV SCH ×2 (01:00→09:53)
[2020-12-31 04:32] VITALS: BP 119/56
[2020-12-31] MEDS: DEXT 5%/0.45% NACL 1000ML 1,000 ML IV SCH ×2 (07:03→21:07)
[2020-12-31 08:00] VITALS: BP 116/65
[2020-12-31] MEDS: PANTOPRAZOLE SODIUM 40 MG/VIAL IV SCH (08:41)
[2020-12-31] MEDS: ENOXAPARIN 40MG/0.4ML SYR SUBCUT SCH (08:42)
[2020-12-31] MEDS: LOSARTAN POTASSIUM 50 MG TABLET PO SCH (08:42)
[2020-12-31] MEDS: MORPHINE SULFATE 4 MG/ML CPJ (NOT FOR IM USE) IV PRN ×3 (08:43→21:06)
[2020-12-31] MEDS ORDERED: DIATR MEGLU/DIATRIZOATE SOLN 30ML PO ONE (10:15)
[2020-12-31] MEDS ORDERED: DIATR MEGLU/DIATRIZOATE SOLN 30ML PO SCH (10:30)
[2020-12-31] MEDS: PIPERACILLIN/TAZOBACTAM 3.375 G in DEXTROSE 5% WATER 50 ML IV SCH ×2 (11:20→21:00)
[2020-12-31] MEDS: VANCOMYCIN HCL 1000 MG/20 ML ORAL PO SCH ×2 (11:20→19:07)
[2020-12-31 12:00] VITALS: BP 145/68
[2020-12-31] MEDS ORDERED: DIATR MEGLU/DIATRIZOATE SOLN 120ML ONE (13:48)
[2020-12-31] MEDS: SORBITOL 70% SOLN 30ML PO NR ×2 (15:16→15:22)
[2020-12-31 16:00] VITALS: BP 143/74
[2020-12-31] MEDS ORDERED: MINERAL OIL ENEMA 133ML PR NR (16:30)
[2020-12-31] MEDS: DOCUSATE SODIUM 100MG CAPSULE PO SCH (17:00)
[2020-12-31] MEDS: METOCLOPRAMIDE HCL 10MG/2ML VIAL IV SCH (19:06)
[2020-12-31 20:00] VITALS: BP 154/49
[2020-12-31] MEDS ORDERED: LACTULOSE 20G/30ML UDC PO SCH (21:00)
[2021-01-01] VITALS: BP 129/46
[2021-01-01] MEDS: VANCOMYCIN HCL 1000 MG/20 ML ORAL PO SCH ×2 (00:46→05:52)
[2021-01-01] MEDS: METOCLOPRAMIDE HCL 10MG/2ML VIAL IV SCH ×5 (00:46→23:16)
[2021-01-01] MEDS: MORPHINE SULFATE 4 MG/ML CPJ (NOT FOR IM USE) IV PRN ×4 (01:47→21:50)
[2021-01-01 04:00] VITALS: BP 118/49
[2021-01-01] MEDS: PIPERACILLIN/TAZOBACTAM 3.375 G in DEXTROSE 5% WATER 50 ML IV SCH ×3 (05:49→21:41)
[2021-01-01 08:00] VITALS: BP 122/55
[2021-01-01] MEDS: LOSARTAN POTASSIUM 50 MG TABLET PO SCH (08:14)
[2021-01-01] MEDS: POLYETHYLENE GLYCOL 3350 (17GM) 1 DOSE PACK PO SCH (08:15)
[2021-01-01 08:16] LABS: BASOPHILS % 1.4 % (0.0-2.0); EOSINOPHILS % 2.7 % (0.0-5.0); HEMATOCRIT. 31.9 % (36.0-48.0); HEMOGLOBIN. 10.6 g/dL (12.0-16.0); LYMPHOCYTES % 37.3 % (20.0-50.0); MEAN CORPUSCULAR VOLUME 90.9 fL (81.0-99.0); MEAN PLATELET VOLUME 8.3 fl (7.4-10.4); MONOCYTES % 10.7 % (2.0-8.0); NEUTROPHILS % 47.9 % (40.0-76.0); PLATELET 460 x1000/uL (130-400); RED BLOOD CELL COUNT 3.51 mill/uL (4.2-5.4); RED CELL DISTRIBUTION WIDTH 13.7 % (11.6-14.6)
[2021-01-01] MEDS: ENOXAPARIN 40MG/0.4ML SYR SUBCUT SCH (08:16)
[2021-01-01] MEDS: PANTOPRAZOLE SODIUM 40 MG/VIAL IV SCH (08:17)
[2021-01-01] MEDS: DOCUSATE SODIUM 100MG CAPSULE PO SCH ×2 (08:17→17:25)
[2021-01-01 08:19] LABS: CHLORIDE 110 mEq/L (98-107)
[2021-01-01 08:25] LABS: PHOSPHORUS 2.7 mg/dL (2.5-4.9)
[2021-01-01 09:10] LABS: SACCHAROMYCES CEREVISIAE IGG 36.5 Units (0.0-24.9); SACCHAROMYCES CEREVISIAE IGM <20.0 Units (0.0-24.9)
[2021-01-01] MEDS ORDERED: POTASSIUM CHLORIDE 20MEQ TABLET SR PO NR (09:15)
[2021-01-01 13:07] LABS: ATYPICAL pANCA <1:20 titer (Neg:<1:20)
[2021-01-01 16:00] VITALS: BP 135/59
[2021-01-01] MEDS: LACTULOSE 20G/30ML UDC PO SCH (17:25)
[2021-01-01 20:00] VITALS: BP 139/80
[2021-01-02] VITALS: BP 119/50
[2021-01-02] MEDS: LORAZEPAM 2MG/ML CPJ IV PRN
[2021-01-02 04:00] VITALS: BP 124/49
[2021-01-02] MEDS: PIPERACILLIN/TAZOBACTAM 3.375 G in DEXTROSE 5% WATER 50 ML IV SCH ×3 (05:51→21:46)
[2021-01-02] MEDS: METOCLOPRAMIDE HCL 10MG/2ML VIAL IV SCH ×2 (05:51→12:45)
[2021-01-02 07:00] LABS: BASOPHILS % 1.1 % (0.0-2.0); EOSINOPHILS % 2.7 % (0.0-5.0); HEMATOCRIT. 28.1 % (36.0-48.0); HEMOGLOBIN. 9.7 g/dL (12.0-16.0); MEAN CORPUSCULAR HEMOGLOBIN 30.9 pg (28.0-32.0); MEAN CORPUSCULAR VOLUME 89.3 fL (81.0-99.0); MEAN PLATELET VOLUME 8.6 fl (7.4-10.4); MONOCYTES % 11.6 % (2.0-8.0); NEUTROPHILS % 33.6 % (40.0-76.0); PLATELET 409 x1000/uL (130-400); RED BLOOD CELL COUNT 3.14 mill/uL (4.2-5.4); RED CELL DISTRIBUTION WIDTH 13.4 % (11.6-14.6)
[2021-01-02 07:03] LABS: CHLORIDE 110 mEq/L (98-107)
[2021-01-02 07:11] LABS: PHOSPHORUS 3.3 mg/dL (2.5-4.9)
[2021-01-02 08:00] VITALS: BP 123/55
[2021-01-02] MEDS: LACTULOSE 20G/30ML UDC PO SCH ×2 (09:12→17:57)
[2021-01-02] MEDS: MORPHINE SULFATE 4 MG/ML CPJ (NOT FOR IM USE) IV PRN ×3 (09:12→21:06)
[2021-01-02] MEDS: PANTOPRAZOLE SODIUM 40 MG/VIAL IV SCH (09:12)
[2021-01-02] MEDS: POLYETHYLENE GLYCOL 3350 (17GM) 1 DOSE PACK PO SCH (09:13)
[2021-01-02] MEDS: LOSARTAN POTASSIUM 50 MG TABLET PO SCH (09:13)
[2021-01-02] MEDS: ENOXAPARIN 40MG/0.4ML SYR SUBCUT SCH (09:13)
[2021-01-02] MEDS: DOCUSATE SODIUM 100MG CAPSULE PO SCH ×2 (09:13→17:57)
[2021-01-02 20:00] VITALS: BP 139/51
[2021-01-03] VITALS: BP 141/84
[2021-01-03] MEDS: MORPHINE SULFATE 4 MG/ML CPJ (NOT FOR IM USE) IV PRN ×4 (01:54→21:12)
[2021-01-03] MEDS: LORAZEPAM 2MG/ML CPJ IV PRN (02:40)
[2021-01-03 04:00] VITALS: BP 161/87
[2021-01-03] MEDS: PIPERACILLIN/TAZOBACTAM 3.375 G in DEXTROSE 5% WATER 50 ML IV SCH ×3 (06:07→21:12)
[2021-01-03 08:00] VITALS: BP 140/66
[2021-01-03 08:59] LABS: HEMATOCRIT. 29.4 % (36.0-48.0); HEMOGLOBIN. 9.7 g/dL (12.0-16.0); LYMPHOCYTES % 53.3 % (20.0-50.0); MEAN CORPUSCULAR HEMOGLOBIN 29.5 pg (28.0-32.0); MEAN CORPUSCULAR VOLUME 89.6 fL (81.0-99.0); MEAN PLATELET VOLUME 8.6 fl (7.4-10.4); MONOCYTES % 10.7 % (2.0-8.0); PLATELET 433 x1000/uL (130-400); RED BLOOD CELL COUNT 3.29 mill/uL (4.2-5.4); RED CELL DISTRIBUTION WIDTH 13.3 % (11.6-14.6)
[2021-01-03 09:04] LABS: CHLORIDE 111 mEq/L (98-107)
[2021-01-03] MEDS: ENOXAPARIN 40MG/0.4ML SYR SUBCUT SCH (09:12)
[2021-01-03] MEDS: POLYETHYLENE GLYCOL 3350 (17GM) 1 DOSE PACK PO SCH (09:12)
[2021-01-03] MEDS: LACTULOSE 20G/30ML UDC PO SCH ×2 (09:12→17:47)
[2021-01-03] MEDS: PANTOPRAZOLE SODIUM 40 MG/VIAL IV SCH (09:13)
[2021-01-03] MEDS: DOCUSATE SODIUM 100MG CAPSULE PO SCH ×2 (09:13→17:47)
[2021-01-03] MEDS: LOSARTAN POTASSIUM 50 MG TABLET PO SCH (09:13)
[2021-01-03 12:00] VITALS: BP 146/73
[2021-01-03 16:00] VITALS: BP 131/64
[2021-01-03 20:00] VITALS: BP 161/73
[2021-01-04] VITALS: BP 150/68
[2021-01-04 04:00] VITALS: BP 167/81
[2021-01-04] MEDS: MORPHINE SULFATE 4 MG/ML CPJ (NOT FOR IM USE) IV PRN ×2 (04:45→09:08)
[2021-01-04] MEDS: PIPERACILLIN/TAZOBACTAM 3.375 G in DEXTROSE 5% WATER 50 ML IV SCH (05:37)
[2021-01-04 06:34] LABS: BASOPHILS % 0.8 % (0.0-2.0); HEMATOCRIT. 30.9 % (36.0-48.0); HEMOGLOBIN. 10.4 g/dL (12.0-16.0); LYMPHOCYTES % 52.2 % (20.0-50.0); MEAN CORPUSCULAR HEMOGLOBIN 29.6 pg (28.0-32.0); MEAN CORPUSCULAR VOLUME 87.5 fL (81.0-99.0); MEAN PLATELET VOLUME 8.2 fl (7.4-10.4); PLATELET 438 x1000/uL (130-400); RED BLOOD CELL COUNT 3.53 mill/uL (4.2-5.4); RED CELL DISTRIBUTION WIDTH 13.2 % (11.6-14.6)
[2021-01-04 07:13] LABS: CHLORIDE 110 mEq/L (98-107)
[2021-01-04 08:00] VITALS: BP 150/79
[2021-01-04] MEDS: LACTULOSE 20G/30ML UDC PO SCH (09:00)
[2021-01-04] MEDS: PANTOPRAZOLE SODIUM 40 MG/VIAL IV SCH (09:06)
[2021-01-04] MEDS: DOCUSATE SODIUM 100MG CAPSULE PO SCH (09:06)
[2021-01-04] MEDS: POLYETHYLENE GLYCOL 3350 (17GM) 1 DOSE PACK PO SCH (09:06)
[2021-01-04] MEDS: ENOXAPARIN 40MG/0.4ML SYR SUBCUT SCH (09:07)
[2021-01-04] MEDS: LOSARTAN POTASSIUM 50 MG TABLET PO SCH (09:07)
[2021-01-04 11:16] VITALS: BP 150/79
== END 2021-01-04 12:29 | disposition home or self-care (01) | DRG 392 ==
LOC: ER 20:14 → MICUSO 12-29 02:38 → 6EST 12-29 11:05
PROVIDERS: ADMIT Internal Medicine Nephrology; ATTEND Internal Medicine Nephrology
PROC: 02HV33Z Insertion of Infusion Device into Superior Vena Cava, Percutaneous Approach (ICD-10-PCS; principal; 2020-12-29)
PROC: B548ZZA Ultrasonography of Superior Vena Cava, Guidance (ICD-10-PCS; 2020-12-29)
DX: K52.9 Noninfective gastroenteritis and colitis, unspecified (principal); I31.3 Pericardial effusion (noninflammatory); K57.30 Diverticulosis of large intestine without perforation or abscess without bleeding; I11.0 Hypertensive heart disease with heart failure; I50.9 Heart failure, unspecified; B34.9 Viral infection, unspecified; D57.1 Sickle-cell disease without crisis; K56.41 Fecal impaction; N32.89 Other specified disorders of bladder; Z20.822 Contact with and (suspected) exposure to COVID-19; C50.919 Malignant neoplasm of unspecified site of unspecified female breast; F41.9 Anxiety disorder, unspecified; G89.4 Chronic pain syndrome; M47.816 Spondylosis without myelopathy or radiculopathy, lumbar region; Z98.51 Tubal ligation status; Z79.899 Other long term (current) drug therapy; Z79.82 Long term (current) use of aspirin; Z88.2 Allergy status to sulfonamides; Z88.8 Allergy status to other drugs, medicaments and biological substances; Z91.013 Allergy to seafood
CPT/HCPCS: 36415; 71045; 74018; 74176; 74270; 76937; 80048; 80053; 81003; 82270; 83735; 84100; 85025; 86256; 86671; 87015; 87045; 87426; 87427; 87449; 87493; 93005; 93306; 93970; 99285; C1725; C1769; C1893; C9113; J1200; J1650; J1956; J2060; J2270; J2405; J2543; J2765; J3370; J3490; J7040; J7060; Q9963

== ENCOUNTER 2021-01-19 06:26 | Day surgery (SDC) | payer MEDICARE, MEDICAID ==
[~2021-01-19] VITALS: Ht 149.9 cm; Wt 44.9 kg
[2021-01-19] MEDS ORDERED: LACTATED RINGERS 1,000 ML IV SCH (13:00)
[2021-01-19] MEDS ORDERED: METHYLENE BLUE 50 MG/10 ML AMP IV ONE ×2 (13:35→14:20)
[2021-01-19] MEDS ORDERED: BUPIVACAINE HCL/PF 0.5% (5MG/ML) 10ML ONE (13:35)
[2021-01-19] MEDS ORDERED: SODIUM CHLORIDE 0.9% INJ 10ML FLUSH IVF ONE (13:36)
[2021-01-19] MEDS ORDERED: SKIN ADHESIVE 0.7 GM EA TOP ONE (14:21)
[2021-01-19] MEDS ORDERED: BUPIVACAINE HCL 0.5% (5MG/ML) 50ML ONE (14:21)
[2021-01-19] MEDS ORDERED: FENTANYL CITRATE/PF 50MCG/ML 2ML VIAL ONE (14:26)
[2021-01-19] MEDS ORDERED: NEOSTIGMINE METHYLSULFATE 1MG/ML 10 ML VIAL ONE (14:26)
[2021-01-19] MEDS ORDERED: MIDAZOLAM HCL 2 MG/2 ML VIAL ONE (14:26)
[2021-01-19] MEDS ORDERED: PROPOFOL 200MG/20ML VIAL IV ONE (14:26)
[2021-01-19] MEDS ORDERED: GLYCOPYRROLATE 0.2 MG/ML 2ML VIAL ONE (14:27)
[2021-01-19] MEDS ORDERED: ONDANSETRON HCL 4MG/2ML INJ ONE (14:27)
[2021-01-19] MEDS ORDERED: SODIUM CHLORIDE 0.9% 10ML VIAL ONE (14:27)
[2021-01-19] MEDS ORDERED: SUCCINYLCHOLINE CHLORIDE 200MG/10ML IV ONE (14:27)
[2021-01-19] MEDS ORDERED: PHENYLEPHRINE HCL 10 MG/ML 1ML (IV VIAL) IV ONE (14:27)
[2021-01-19] MEDS ORDERED: METOCLOPRAMIDE HCL 10MG/2ML VIAL ONE (14:27)
[2021-01-19] MEDS ORDERED: CEFAZOLIN SODIUM 1000MG/VIAL ONE (14:27)
[2021-01-19] MEDS ORDERED: FENTANYL CITRATE/PF 50MCG/ML 2ML VIAL IV PRN ×2 (15:45→16:15)
[2021-01-19] MEDS ORDERED: HYDROCODONE/ACETAMINOPHEN 5/325MG TABLET PO ONE (15:45)
[2021-01-19] MEDS ORDERED: ONDANSETRON HCL 4MG/2ML INJ IV PRN ×2 (15:45→16:15)
[2021-01-19 17:49] VITALS: BP 151/87
== END 2021-01-19 20:20 | disposition home or self-care (01) ==
LOC: OR 06:26 → EDSTATUS 12:00 → OR 20:20
PROVIDERS: ATTEND Surgery
DX: C50.912 Malignant neoplasm of unspecified site of left female breast (principal); I11.9 Hypertensive heart disease without heart failure; Z79.899 Other long term (current) drug therapy; Z98.890 Other specified postprocedural states
CPT/HCPCS: 38525; 78195; 88305; 88331; J0330; J0690; J2250; J2405; J2704; J3010; J3490; Q9968; J2370; J2710; J2765

== ENCOUNTER 2021-01-27 00:02 | Inpatient (IN) | payer MEDICARE, MEDICAID ==
[~2021-01-27] VITALS: Ht 149.9 cm; Wt 47.9 kg
[~2021-01-27 00:02] MED LIST changes: -CHOL50006 PO; -MULT-1146 PO; -PREVAGEN PO
[2021-01-27] MEDS ORDERED: ONDANSETRON HCL 4MG/2ML INJ IV STA (01:31)
[2021-01-27] MEDS ORDERED: MORPHINE SULFATE 4 MG/ML CPJ (NOT FOR IM USE) IV STA (01:31)
[2021-01-27] MEDS ORDERED: SODIUM CHLORIDE 0.9% 1,000 ML IV ONE (01:45)
[2021-01-27] MEDS ORDERED: MORPHINE SULFATE 2 MG/ML CPJ (NOT FOR IM USE) IV SCH ×2 (01:45→04:00)
[2021-01-27 02:49] LABS: BASOPHILS % 1.7 % (0.0-2.0); EOSINOPHILS % 4.4 % (0.0-5.0); HEMOGLOBIN. 12.2 g/dL (12.0-16.0); LYMPHOCYTES % 61.5 % (20.0-50.0); MEAN CORPUSCULAR HEMOGLOBIN 29.9 pg (28.0-32.0); MEAN CORPUSCULAR VOLUME 90.7 fL (81.0-99.0); MEAN PLATELET VOLUME 8.5 fl (7.4-10.4); MONOCYTES % 10.5 % (2.0-8.0); NEUTROPHILS % 21.9 % (40.0-76.0); PLATELET 278 x1000/uL (130-400); RED BLOOD CELL COUNT 4.08 mill/uL (4.2-5.4); RED CELL DISTRIBUTION WIDTH 14.5 % (11.6-14.6)
[2021-01-27 02:53] LABS: CHLORIDE 109 mEq/L (98-107)
[2021-01-27 03:01] LABS: PROTHROMBIN TIME 10.5 sec (9.6-11.0)
[2021-01-27] MEDS ORDERED: MORPHINE SULFATE 4 MG/ML CPJ (NOT FOR IM USE) IV ONE (03:30)
[2021-01-27] MEDS ORDERED: CARISOPRODOL 350 MG TABLET PO PRN (08:45)
[2021-01-27] MEDS ORDERED: LOSARTAN POTASSIUM 100 MG TABLET PO SCH (09:00)
[2021-01-27] MEDS: MORPHINE SULFATE 2 MG/ML CPJ (NOT FOR IM USE) IV PRN ×3 (10:17→22:55)
[2021-01-27] MEDS: FUROSEMIDE 40MG TABLET PO SCH ×2 (10:18→20:05)
[2021-01-27 12:00] VITALS: BP 125/56
[2021-01-27] MEDS ORDERED: NALOXONE HCL 0.4MG/ML VIAL IV PRN (13:15)
[2021-01-27 14:18] VITALS: BP 125/56
[2021-01-27 15:43] LABS: HEMATOCRIT 35.6 % (36.0-48.0)
[2021-01-27 16:00] VITALS: BP 130/56
[2021-01-27] MEDS: PANTOPRAZOLE SODIUM 40 MG/VIAL IV SCH (16:22)
[2021-01-27 20:00] VITALS: BP 116/67
[2021-01-28] VITALS: BP 132/52
[2021-01-28 00:20] LABS: HEMOGLOBIN 12.4 g/dL (12.0-16.0)
[2021-01-28 04:00] VITALS: BP 128/51
[2021-01-28] MEDS: MORPHINE SULFATE 2 MG/ML CPJ (NOT FOR IM USE) IV PRN ×2 (04:42→09:22)
[2021-01-28] MEDS: FUROSEMIDE 40MG TABLET PO SCH (06:56)
[2021-01-28 07:41] LABS: BASOPHILS % 1.1 % (0.0-2.0); HEMATOCRIT. 36.8 % (36.0-48.0); HEMOGLOBIN. 12.2 g/dL (12.0-16.0); MEAN CORPUSCULAR VOLUME 90.4 fL (81.0-99.0); MEAN PLATELET VOLUME 8.5 fl (7.4-10.4); MONOCYTES % 13.6 % (2.0-8.0); NEUTROPHILS % 35.3 % (40.0-76.0); PLATELET 279 x1000/uL (130-400); RED BLOOD CELL COUNT 4.07 mill/uL (4.2-5.4); RED CELL DISTRIBUTION WIDTH 14.5 % (11.6-14.6)
[2021-01-28 07:52] LABS: CHLORIDE 105 mEq/L (98-107)
[2021-01-28 08:00] VITALS: BP 117/58
[2021-01-28 08:03] LABS: LDL CHOLESTEROL 155 mg/dL (5-100)
[2021-01-28 08:06] LABS: HDL CHOLESTEROL 54 mg/dL (40-59)
[2021-01-28] MEDS: PANTOPRAZOLE SODIUM 40 MG/VIAL IV SCH (08:58)
[2021-01-28 12:00] VITALS: BP 115/56
[2021-01-28 12:16] VITALS: BP 117/58
== END 2021-01-28 13:00 | disposition home or self-care (01) | DRG 392 ==
LOC: ER 00:02 → MICUSO 06:19 → SUPCPDRO 08:36 → 7EST 13:07
PROVIDERS: ADMIT Internal Medicine Nephrology; ATTEND Internal Medicine Nephrology
DX: K52.9 Noninfective gastroenteritis and colitis, unspecified (principal); I11.0 Hypertensive heart disease with heart failure; D57.1 Sickle-cell disease without crisis; C50.919 Malignant neoplasm of unspecified site of unspecified female breast; I50.9 Heart failure, unspecified; Z91.041 Radiographic dye allergy status; Z91.013 Allergy to seafood; Z79.899 Other long term (current) drug therapy; Z79.82 Long term (current) use of aspirin; Z98.51 Tubal ligation status; Z82.49 Family history of ischemic heart disease and other diseases of the circulatory system; Z90.10 Acquired absence of unspecified breast and nipple
CPT/HCPCS: 36415; 71045; 74018; 74176; 80053; 80061; 83605; 85014; 85018; 85025; 86850; 86900; 93005; 99285; C9113; J2270; J2405; J7030

== ENCOUNTER → 2021-06-29 | Outpatient (CLI) | payer MEDICARE, MEDICAID ==
[~2021-06-29] MED LIST changes: +BARIUM SULFATE 450ML ORAL SUSP ONE; +DIAZ5SOL3 PO; +LETR2.5T7 PO; +SENN-257 PO; -VITAMIN B-12 IM
== END | disposition home or self-care (01) ==
LOC: CT 08:35
PROVIDERS: ATTEND Internal Medicine Hematology & Oncology
DX: C50.412 Malignant neoplasm of upper-outer quadrant of left female breast (principal); K57.30 Diverticulosis of large intestine without perforation or abscess without bleeding; K59.00 Constipation, unspecified; D25.9 Leiomyoma of uterus, unspecified; J98.11 Atelectasis; I31.3 Pericardial effusion (noninflammatory); I70.0 Atherosclerosis of aorta; M47.816 Spondylosis without myelopathy or radiculopathy, lumbar region; D57.1 Sickle-cell disease without crisis
CPT/HCPCS: 71250; 74176

== ENCOUNTER 2021-11-16 19:53 | Emergency (ER) | payer MEDICARE, MEDICAID ==
[~2021-11-16] VITALS: Ht 149.9 cm; Wt 51.8 kg
[~2021-11-16 19:53] MED LIST changes: +ASCO500C18 PO; -BARIUM SULFATE 450ML ORAL SUSP ONE; +BRIM2.5D OP; +CARV12.545 PO; +CLON0.1T PO; +CYAN-50 PO; +DIAZ5SOL PO; -DIAZ5SOL3 PO; +POTA-205 PO
[2021-11-16 20:51] LABS: EOSINOPHILS % 1.3 % (0.0-5.0); HEMATOCRIT. 38.5 % (36.0-48.0); HEMOGLOBIN. 12.9 g/dL (12.0-16.0); MEAN CORPUSCULAR VOLUME 89.4 fL (81.0-99.0); MEAN PLATELET VOLUME 8.2 fl (7.4-10.4); MONOCYTES % 9.4 % (2.0-8.0); NEUTROPHILS % 44.3 % (40.0-76.0); PLATELET 275 x1000/uL (130-400); RED BLOOD CELL COUNT 4.31 mill/uL (4.2-5.4); RED CELL DISTRIBUTION WIDTH 14.2 % (11.6-14.6)
[2021-11-16 20:57] LABS: CHLORIDE 105 mEq/L (98-107)
[2021-11-16] MEDS ORDERED: HYDROCODONE/ACETAMINOPHEN 5/325MG TABLET PO ONE (22:45)
[2021-11-17 00:22] VITALS: BP 138/67
[2021-11-17] MEDS ORDERED: IBUP-2029 MT (01:29)
[2021-11-17] MEDS ORDERED: HYDR-4001 MT (01:29)
== END 2021-11-17 02:06 | disposition home or self-care (01) ==
LOC: ER 19:53
DX: S40.011A Contusion of right shoulder, initial encounter (principal); S00.83XA Contusion of other part of head, initial encounter; S10.93XA Contusion of unspecified part of neck, initial encounter; S80.02XA Contusion of left knee, initial encounter; S80.01XA Contusion of right knee, initial encounter; I11.0 Hypertensive heart disease with heart failure; I50.9 Heart failure, unspecified; D57.1 Sickle-cell disease without crisis; B20 Human immunodeficiency virus [HIV] disease; W01.0XXA Fall on same level from slipping, tripping and stumbling without subsequent striking against object, initial encounter; Y93.01 Activity, walking, marching and hiking; Z85.3 Personal history of malignant neoplasm of breast; Z88.2 Allergy status to sulfonamides; Z79.82 Long term (current) use of aspirin; Z90.10 Acquired absence of unspecified breast and nipple; Z98.51 Tubal ligation status; Z91.041 Radiographic dye allergy status
CPT/HCPCS: 36415; 71100; 73030; 73110; 73562; 80053; 84484; 85025; 93005; 99285

== ENCOUNTER 2022-03-05 20:34 | Inpatient (IN) | payer MEDICARE, MEDICAID ==
[~2022-03-05] VITALS: Ht 149.9 cm; Wt 59.0 kg
[~2022-03-05 20:34] MED LIST changes: +HYDR-4001 MT; +IBUP-2029 MT
[2022-03-05] MEDS ORDERED: ASPIRIN 81MG TABLET PO ONE (21:45)
[2022-03-05] MEDS ORDERED: NITROGLYCERIN 0.4MG TABLET SL SL PRN (21:45)
[2022-03-05 22:43] LABS: EOSINOPHILS % 3.2 % (0.0-5.0); HEMATOCRIT. 34.9 % (36.0-48.0); HEMOGLOBIN. 11.7 g/dL (12.0-16.0); LYMPHOCYTES % 65.1 % (20.0-50.0); MEAN CORPUSCULAR HEMOGLOBIN 29.7 pg (28.0-32.0); MEAN CORPUSCULAR VOLUME 88.7 fL (81.0-99.0); MEAN PLATELET VOLUME 8.4 fl (7.4-10.4); MONOCYTES % 8.5 % (2.0-8.0); NEUTROPHILS % 22.2 % (40.0-76.0); PLATELET 252 x1000/uL (130-400); RED BLOOD CELL COUNT 3.94 mill/uL (4.2-5.4); RED CELL DISTRIBUTION WIDTH 13.7 % (11.6-14.6)
[2022-03-05 22:48] LABS: CHLORIDE 100 mEq/L (98-107)
[2022-03-05 22:50] LABS: D-DIMER 0.79 mg/L FEU (<0.50); PARTIAL THROMBOPLASTIN TIME 25.6 sec (23.4-31.0); PROTHROMBIN TIME 10.5 sec (9.6-11.0)
[2022-03-05] MEDS ORDERED: MORPHINE SULFATE 4 MG/ML CPJ (NOT FOR IM USE) IV STA (23:49)
[2022-03-05] MEDS ORDERED: ONDANSETRON HCL 4MG/2ML INJ IV STA (23:49)
[2022-03-06] MEDS ORDERED: POTASSIUM CHLORIDE 20MEQ TABLET SR PO ONE
[2022-03-06] MEDS ORDERED: ENOXAPARIN 60MG/0.6ML SYR SUBCUT ONE
[2022-03-06] MEDS ORDERED: CLONIDINE 0.1MG TABLET PO PRN (00:45)
[2022-03-06] MEDS ORDERED: DOCUSATE SODIUM 100MG CAPSULE PO PRN (00:45)
[2022-03-06] MEDS ORDERED: ONDANSETRON HCL 4MG/2ML INJ IV PRN (00:45)
[2022-03-06] MEDS ORDERED: ACETAMINOPHEN 325MG TABLET PO PRN (00:45)
[2022-03-06] MEDS ORDERED: NALOXONE HCL 0.4MG/ML VIAL IV PRN (01:00)
[2022-03-06 03:45] VITALS: BP 130/70
[2022-03-06 04:00] VITALS: BP_SYST 103; BP_SYST 130; BP_DIAS 42; BP_DIAS 52
[2022-03-06 08:00] VITALS: BP 100/53
[2022-03-06] MEDS: CARISOPRODOL 350 MG TABLET PO SCH ×2 (08:49→16:05)
[2022-03-06] MEDS: POTASSIUM CHLORIDE 20MEQ TABLET SR PO SCH (08:50)
[2022-03-06] MEDS: FUROSEMIDE 40MG TABLET PO SCH ×2 (08:50→16:20)
[2022-03-06] MEDS: ASPIRIN 81MG EC TABLET PO SCH (08:51)
[2022-03-06] MEDS: CARVEDILOL 12.5MG TABLET PO SCH (08:51)
[2022-03-06] MEDS: LOSARTAN POTASSIUM 100 MG TABLET PO SCH (08:52)
[2022-03-06] MEDS ORDERED: *PATIENT'S OWN MEDICATION STORAGE XX SCH (10:15)
[2022-03-06 10:42] LABS: T4 FREE 0.93 ng/dL (0.76-1.46)
[2022-03-06] MEDS: DIAZEPAM 5 MG TABLET PO SCH ×2 (10:54→21:00)
[2022-03-06] MEDS: MORPHINE SULFATE 2 MG/ML CPJ (NOT FOR IM USE) IV PRN ×2 (11:04→16:20)
[2022-03-06 12:00] VITALS: BP_SYST 109; BP_SYST 116; BP_DIAS 52; BP_DIAS 68
[2022-03-06 16:00] VITALS: BP 104/52
[2022-03-06 16:28] LABS: CREATINE KINASE 77 IU/L (26-192); CREATINE KINASE MB FRACTION < 1.0 ng/mL (0.5-3.6)
[2022-03-06 20:00] VITALS: BP 93/59
[2022-03-06 23:50] LABS: CREATINE KINASE 75 IU/L (26-192); CREATINE KINASE MB FRACTION < 1.0 ng/mL (0.5-3.6)
[2022-03-07] VITALS: BP 99/63
[2022-03-07] MEDS: MORPHINE SULFATE 2 MG/ML CPJ (NOT FOR IM USE) IV PRN ×3 (02:22→21:36)
[2022-03-07 04:00] VITALS: BP 126/56
[2022-03-07] MEDS: FUROSEMIDE 40MG TABLET PO SCH ×2 (06:33→16:59)
[2022-03-07 07:48] LABS: BASOPHILS % 0.7 % (0.0-2.0); EOSINOPHILS % 3.2 % (0.0-5.0); HEMATOCRIT. 33.8 % (36.0-48.0); HEMOGLOBIN. 11.4 g/dL (12.0-16.0); LYMPHOCYTES % 47.1 % (20.0-50.0); MEAN CORPUSCULAR VOLUME 89.1 fL (81.0-99.0); MEAN PLATELET VOLUME 8.2 fl (7.4-10.4); MONOCYTES % 8.8 % (2.0-8.0); NEUTROPHILS % 40.2 % (40.0-76.0); PLATELET 240 x1000/uL (130-400); RED BLOOD CELL COUNT 3.79 mill/uL (4.2-5.4); RED CELL DISTRIBUTION WIDTH 13.5 % (11.6-14.6)
[2022-03-07 08:00] VITALS: BP 155/51
[2022-03-07 08:00] LABS: CHLORIDE 103 mEq/L (98-107)
[2022-03-07 08:10] LABS: CREATINE KINASE 59 IU/L (26-192); CREATINE KINASE MB FRACTION < 1.0 ng/mL (0.5-3.6)
[2022-03-07] MEDS: CARVEDILOL 12.5MG TABLET PO SCH (08:59)
[2022-03-07] MEDS: LOSARTAN POTASSIUM 100 MG TABLET PO SCH (08:59)
[2022-03-07] MEDS: ASPIRIN 81MG EC TABLET PO SCH (08:59)
[2022-03-07] MEDS: ENOXAPARIN 40MG/0.4ML SYR SUBCUT SCH (08:59)
[2022-03-07] MEDS: POTASSIUM CHLORIDE 20MEQ TABLET SR PO SCH (08:59)
[2022-03-07] MEDS: CARISOPRODOL 350 MG TABLET PO SCH ×2 (08:59→16:59)
[2022-03-07] MEDS: DIAZEPAM 5 MG TABLET PO SCH ×2 (08:59→20:31)
[2022-03-07 12:00] VITALS: BP 122/58
[2022-03-07] MEDS ORDERED: REGADENOSON 0.4 MG/5 ML IV NR (12:45)
[2022-03-07 16:00] VITALS: BP 106/62
[2022-03-07 20:00] VITALS: BP 130/61
[2022-03-08] VITALS: BP 95/35
[2022-03-08 02:02] VITALS: BP 104/54
[2022-03-08] MEDS: MORPHINE SULFATE 2 MG/ML CPJ (NOT FOR IM USE) IV PRN ×2 (02:05→10:52)
[2022-03-08 03:59] VITALS: BP 99/45
[2022-03-08 08:00] VITALS: BP 129/70
[2022-03-08] MEDS ORDERED: REGADENOSON 0.4 MG/5 ML IV ONE (08:13)
[2022-03-08] MEDS: CARISOPRODOL 350 MG TABLET PO SCH (10:52)
[2022-03-08] MEDS: LOSARTAN POTASSIUM 100 MG TABLET PO SCH (10:52)
[2022-03-08] MEDS: ENOXAPARIN 40MG/0.4ML SYR SUBCUT SCH (10:52)
[2022-03-08] MEDS: FUROSEMIDE 40MG TABLET PO SCH (10:54)
[2022-03-08] MEDS: POTASSIUM CHLORIDE 20MEQ TABLET SR PO SCH (10:54)
[2022-03-08] MEDS: ASPIRIN 81MG EC TABLET PO SCH (10:54)
[2022-03-08] MEDS: CARVEDILOL 12.5MG TABLET PO SCH (10:55)
[2022-03-08 12:00] VITALS: BP 118/52
[2022-03-08] MEDS: DIAZEPAM 5 MG TABLET PO SCH (12:14)
[2022-03-08 12:32] VITALS: BP 118/52
== END 2022-03-08 16:15 | disposition home or self-care (01) | DRG 206 ==
LOC: ER 20:34 → 7EST 03-06 00:23 → EDBEDREQ 03-06 00:27 → ENRESERV 03-06 03:13
PROVIDERS: ADMIT Internal Medicine Nephrology; ATTEND Internal Medicine Nephrology
PROC: 02HV33Z Insertion of Infusion Device into Superior Vena Cava, Percutaneous Approach (ICD-10-PCS; principal; 2022-03-08)
PROC: B5181ZA Fluoroscopy of Superior Vena Cava using Low Osmolar Contrast, Guidance (ICD-10-PCS; 2022-03-08)
PROC: B548ZZA Ultrasonography of Superior Vena Cava, Guidance (ICD-10-PCS; 2022-03-08)
DX: M94.0 Chondrocostal junction syndrome [Tietze] (principal); D72.819 Decreased white blood cell count, unspecified; E87.6 Hypokalemia; I10 Essential (primary) hypertension; Z88.2 Allergy status to sulfonamides; Z88.8 Allergy status to other drugs, medicaments and biological substances; Z90.13 Acquired absence of bilateral breasts and nipples; Z85.3 Personal history of malignant neoplasm of breast; Z79.899 Other long term (current) drug therapy; Z86.718 Personal history of other venous thrombosis and embolism; Z79.811 Long term (current) use of aromatase inhibitors; Z79.82 Long term (current) use of aspirin; Z92.3 Personal history of irradiation; Z82.49 Family history of ischemic heart disease and other diseases of the circulatory system; Z21 Asymptomatic human immunodeficiency virus [HIV] infection status
CPT/HCPCS: 36415; 36573; 71045; 78452; 78582; 80053; 80061; 82550; 82553; 83036; 83735; 83880; 84439; 84443; 84484; 85025; 85379; 87426; 93005; 93017; 93306; 93970; 94640; 99285; A9500; A9558; C1725; C9803; J1650; J2270; J2405; J2785

== ENCOUNTER 2022-06-12 02:36 | Inpatient (IN) | payer MEDICARE, MEDICAID ==
[~2022-06-12] VITALS: Ht 149.9 cm; Wt 61.2 kg
[2022-06-12] MEDS ORDERED: SODIUM CHLORIDE 0.9% 1,000 ML IV ONE (03:45)
[2022-06-12] MEDS ORDERED: ONDANSETRON HCL 4MG/2ML INJ IV ONE (04:00)
[2022-06-12] MEDS ORDERED: MORPHINE SULFATE 4 MG/ML CPJ (NOT FOR IM USE) IV ONE (04:00)
[2022-06-12 04:21] LABS: BASOPHILS % 1.2 % (0.0-2.0); EOSINOPHILS % 2.1 % (0.0-5.0); HEMATOCRIT. 37.6 % (36.0-48.0); HEMOGLOBIN. 12.5 g/dL (12.0-16.0); LYMPHOCYTES % 59.7 % (20.0-50.0); MEAN CORPUSCULAR HEMOGLOBIN 29.5 pg (28.0-32.0); MEAN CORPUSCULAR VOLUME 88.4 fL (81.0-99.0); MEAN PLATELET VOLUME 7.9 fl (7.4-10.4); MONOCYTES % 7.8 % (2.0-8.0); NEUTROPHILS % 29.2 % (40.0-76.0); PLATELET 265 x1000/uL (130-400); RED BLOOD CELL COUNT 4.25 mill/uL (4.2-5.4); RED CELL DISTRIBUTION WIDTH 13.7 % (11.6-14.6)
[2022-06-12 04:35] LABS: CHLORIDE 100 mEq/L (98-107)
[2022-06-12] MEDS ORDERED: DIAZEPAM 2 MG TABLET PO PRN (05:45)
[2022-06-12] MEDS ORDERED: ONDANSETRON HCL 4MG/2ML INJ IV PRN (05:45)
[2022-06-12] MEDS ORDERED: CLONIDINE 0.1MG TABLET PO PRN (05:45)
[2022-06-12] MEDS ORDERED: ACETAMINOPHEN 325MG TABLET PO PRN (05:45)
[2022-06-12 06:18] LABS: CHLORIDE 103 mEq/L (98-107)
[2022-06-12] MEDS: FUROSEMIDE 40MG TABLET PO SCH ×3 (07:15→17:19)
[2022-06-12] MEDS: LOSARTAN POTASSIUM 100 MG TABLET PO SCH (09:00)
[2022-06-12] MEDS: ENOXAPARIN 40MG/0.4ML SYR SUBCUT SCH (09:00)
[2022-06-12] MEDS: ASPIRIN 81MG EC TABLET PO SCH (09:00)
[2022-06-12] MEDS: CARVEDILOL 12.5MG TABLET PO SCH (09:00)
[2022-06-12] MEDS: POTASSIUM CHLORIDE 20MEQ TABLET SR PO SCH (09:00)
[2022-06-12] MEDS: MORPHINE SULFATE 2 MG/ML CPJ (NOT FOR IM USE) IV PRN ×2 (13:41→20:24)
[2022-06-12] MEDS: SODIUM CHLORIDE 0.45% 1,000 ML IV SCH ×2 (14:35→22:30)
[2022-06-12] MEDS: SENNOSIDES 8.6MG TABLET PO SCH ×2 (17:00→17:21)
[2022-06-12] MEDS: CARISOPRODOL 350 MG TABLET PO SCH ×2 (17:18→22:29)
[2022-06-12 21:30] VITALS: BP 126/46
[2022-06-12 22:00] VITALS: BP 126/46
[2022-06-12] MEDS ORDERED: LOSA100T32 PO (23:30)
[2022-06-12] MEDS ORDERED: SACU1TAB PO (23:30)
[2022-06-13] VITALS: BP 101/38
[2022-06-13] MEDS ORDERED: *PATIENT'S OWN MEDICATION STORAGE XX SCH (00:45)
[2022-06-13 04:00] VITALS: BP 116/62
[2022-06-13] MEDS: MORPHINE SULFATE 2 MG/ML CPJ (NOT FOR IM USE) IV PRN ×2 (04:57→12:15)
[2022-06-13] MEDS: CARISOPRODOL 350 MG TABLET PO SCH (06:27)
[2022-06-13] MEDS: FUROSEMIDE 40MG TABLET PO SCH (06:27)
[2022-06-13 07:21] LABS: BASOPHILS % 0.6 % (0.0-2.0); EOSINOPHILS % 3.6 % (0.0-5.0); HEMATOCRIT. 36.3 % (36.0-48.0); HEMOGLOBIN. 12.3 g/dL (12.0-16.0); MEAN CORPUSCULAR VOLUME 88.6 fL (81.0-99.0); MEAN PLATELET VOLUME 8.8 fl (7.4-10.4); MONOCYTES % 7.3 % (2.0-8.0); NEUTROPHILS % 19.5 % (40.0-76.0); PLATELET 261 x1000/uL (130-400); RED CELL DISTRIBUTION WIDTH 13.5 % (11.6-14.6)
[2022-06-13 08:00] VITALS: BP 128/76
[2022-06-13] MEDS: CARVEDILOL 12.5MG TABLET PO SCH (09:00)
[2022-06-13] MEDS: POTASSIUM CHLORIDE 20MEQ TABLET SR PO SCH (09:00)
[2022-06-13] MEDS: ASPIRIN 81MG EC TABLET PO SCH (09:34)
[2022-06-13] MEDS: SENNOSIDES 8.6MG TABLET PO SCH (09:34)
[2022-06-13] MEDS: LOSARTAN POTASSIUM 100 MG TABLET PO SCH (09:34)
[2022-06-13] MEDS: ENOXAPARIN 40MG/0.4ML SYR SUBCUT SCH (09:35)
[2022-06-13] MEDS ORDERED: CEFTRIAXONE SODIUM 1 G/VIAL IM ONE (09:45)
[2022-06-13] MEDS ORDERED: CEFTRIAXONE 1 G PREMIX 50 ML IV ONE (10:45)
[2022-06-13] MEDS ORDERED: CEFTRIAXONE 1,000 MG in DEXTROSE 5% WATER 50 ML IV SCH ×2 (11:00→12:00)
[2022-06-13 12:00] VITALS: BP_SYST 94; BP_SYST 98; BP_DIAS 48
[2022-06-13 12:41] VITALS: BP 98/48
== END 2022-06-13 14:33 | disposition home or self-care (01) | DRG 313 ==
LOC: ER 02:36 → MICUSO 04:51 → EDBEDREQTM 05:03 → EDBEDREQ 05:03 → 7EST 21:02
PROVIDERS: ADMIT Internal Medicine Nephrology; ATTEND Internal Medicine Nephrology
DX: R07.89 Other chest pain (principal); D57.1 Sickle-cell disease without crisis; I10 Essential (primary) hypertension; S10.96XA Insect bite of unspecified part of neck, initial encounter; W57.XXXA Bitten or stung by nonvenomous insect and other nonvenomous arthropods, initial encounter; Z88.2 Allergy status to sulfonamides; Z85.3 Personal history of malignant neoplasm of breast; Z79.811 Long term (current) use of aromatase inhibitors; Z79.82 Long term (current) use of aspirin; Z79.899 Other long term (current) drug therapy; Z82.49 Family history of ischemic heart disease and other diseases of the circulatory system; Y93.89 Activity, other specified; Y92.89 Other specified places as the place of occurrence of the external cause; Y99.8 Other external cause status
CPT/HCPCS: 36415; 71045; 80048; 80053; 83605; 83880; 84443; 84484; 85025; 85044; 85379; 93005; 93306; 93970; 99285; J0696; J1650; J2270; J2405; J7030; J7060

== ENCOUNTER 2022-08-14 01:27 | Emergency (ER) | payer MEDICARE, MEDICAID ==
[~2022-08-14] VITALS: Ht 149.9 cm; Wt 53.2 kg
[~2022-08-14 01:27] MED LIST changes: +SACU1TAB PO
[2022-08-14 01:34] VITALS: BP 83/58
[2022-08-14 03:15] LABS: BASOPHILS % 0.9 % (0.0-2.0); EOSINOPHILS % 2.7 % (0.0-5.0); HEMATOCRIT. 33.3 % (36.0-48.0); HEMOGLOBIN. 11.4 g/dL (12.0-16.0); MEAN CORPUSCULAR HEMOGLOBIN 30.1 pg (28.0-32.0); MEAN CORPUSCULAR VOLUME 88.2 fL (81.0-99.0); MEAN PLATELET VOLUME 7.9 fl (7.4-10.4); MONOCYTES % 11.1 % (2.0-8.0); NEUTROPHILS % 28.3 % (40.0-76.0); PLATELET 270 x1000/uL (130-400); RED BLOOD CELL COUNT 3.78 mill/uL (4.2-5.4); RED CELL DISTRIBUTION WIDTH 13.9 % (11.6-14.6)
[2022-08-14 03:21] LABS: CHLORIDE 103 mEq/L (98-107)
[2022-08-14 03:48] LABS: ETHANOL BLOOD < 10 mg/dL
[2022-08-14 05:14] LABS: CLARITY URINE CLEAR (CLEAR); COLOR URINE YELLOW (YELLOW); KETONES URINE NEGATIVE (NEGATIVE); LEUKOCYTE ESTERASE URINE TRACE (NEGATIVE); NITRITE URINE NEGATIVE (NEGATIVE); OCCULT BLOOD URINE NEGATIVE (NEGATIVE); PH URINE 6.5 (4.5-8.0); PROTEIN URINE NEGATIVE (NEGATIVE); SPECIFIC GRAVITY URINE 1.012 (1.005-1.030); UROBILINOGEN URINE 0.2 E.U./dL (0.2-1.0)
[2022-08-14 05:36] LABS: *AMPHETAMINES SCREEN URINE NEGATIVE (NEGATIVE); *BARBITURATES SCREEN URINE NEGATIVE (NEGATIVE); *BENZODIAZEPINES SCREEN URINE PRESUMTIVE POSITIVE (NEGATIVE); *COCAINE SCREEN URINE NEGATIVE (NEGATIVE); CANNABINOID URINE SCREEN NEGATIVE (NEGATIVE); METHADONE URINE SCREEN NEGATIVE (NEGATIVE); OPIATES URINE SCREEN PRESUMTIVE POSITIVE (NEGATIVE); PHENCYCLIDINE URINE SCREEN NEGATIVE (NEGATIVE)
== END 2022-08-14 06:53 | disposition home or self-care (01) ==
LOC: ER 01:27
DX: R07.89 Other chest pain (principal); R42 Dizziness and giddiness; I10 Essential (primary) hypertension
CPT/HCPCS: 36415; 71045; 80053; 80305; 80320; 81003; 83880; 84484; 85025; 85044; 93005; 99285; G0480

== ENCOUNTER 2022-10-15 00:24 | Emergency (ER) | payer MEDICARE, MEDICAID ==
[~2022-10-15] VITALS: Ht 149.9 cm; Wt 54.5 kg
[~2022-10-15 00:24] MED LIST changes: -LOSA100T32 PO; +LOSA100T33 PO
[2022-10-15] MEDS ORDERED: HYDROCODONE/ACETAMINOPHEN 10/325MG TABLET PO ONE (03:30)
[2022-10-15 04:29] LABS: BASOPHILS % 0.9 % (0.0-2.0); EOSINOPHILS % 2.7 % (0.0-5.0); HEMATOCRIT. 31.5 % (36.0-48.0); HEMOGLOBIN. 10.5 g/dL (12.0-16.0); LYMPHOCYTES % 58.8 % (20.0-50.0); MEAN CORPUSCULAR HEMOGLOBIN 29.7 pg (28.0-32.0); MEAN CORPUSCULAR VOLUME 88.8 fL (81.0-99.0); MEAN PLATELET VOLUME 8.4 fl (7.4-10.4); MONOCYTES % 10.7 % (2.0-8.0); NEUTROPHILS % 26.9 % (40.0-76.0); PLATELET 201 x1000/uL (130-400); RED BLOOD CELL COUNT 3.55 mill/uL (4.2-5.4)
[2022-10-15 04:37] LABS: CHLORIDE 107 mEq/L (98-107)
[2022-10-15] MEDS ORDERED: TOPUD MT (05:29)
[2022-10-15] MEDS ORDERED: HYDROCODONE/ACETAMINOPHEN 10/325MG TABLET PO NR (05:30)
[2022-10-15 05:45] VITALS: BP 139/79
== END 2022-10-15 09:42 | disposition home or self-care (01) ==
LOC: ER 00:24
DX: D64.9 Anemia, unspecified (principal); I10 Essential (primary) hypertension; Z88.2 Allergy status to sulfonamides; Z91.041 Radiographic dye allergy status; Z79.899 Other long term (current) drug therapy; Z79.82 Long term (current) use of aspirin; Z98.51 Tubal ligation status
CPT/HCPCS: 36415; 80053; 85025; 85044; 99283

== ENCOUNTER → 2023-06-16 | Outpatient (CLI) | payer MEDICARE, MEDICAID ==
[~2023-06-16] MED LIST changes: +ASPI-1497 MT; +CARV12.545 MT; +CHOL400D7 MT; +CLON1PAT11 TP; +CYAN10003 SL; +DOCU-150 MT; +FISH MT; +FURO-151 MT; +LOSA100T33 MT; +POTA10CA83 MT; +ROSU5TAB MT; +TOPUD MT; +ZINC50TA69 MT; +[UNRECOGNIZED DRUG - OTHER]
[2023-06-16 15:03] LABS: EOSINOPHILS % 0.3 % (0.0-5.0); HEMATOCRIT. 39.1 % (36.0-48.0); HEMOGLOBIN. 13.2 g/dL (12.0-16.0); LYMPHOCYTES % 42.8 % (20.0-50.0); MEAN CORPUSCULAR HEMOGLOBIN 29.9 pg (28.0-32.0); MEAN CORPUSCULAR HGB CONC 33.9 g/dL (31.0-37.0); MEAN CORPUSCULAR VOLUME 88.1 fL (81.0-99.0); MEAN PLATELET VOLUME 7.7 fl (7.4-10.4); MONOCYTES % 10.5 % (2.0-8.0); NEUTROPHILS % 45.4 % (40.0-76.0); PLATELET 241 x1000/uL (130-400); RED BLOOD CELL COUNT 4.43 mill/uL (4.2-5.4); RED CELL DISTRIBUTION WIDTH 14.3 % (11.6-14.6); WHITE BLOOD COUNT 2.9 x1000/uL (4.5-11.0)
[2023-06-16 15:17] LABS: ALANINE AMINOTRANSFERASE 24 IU/L (10-49); ALBUMIN 4.7 g/dL (3.2-4.8); ASPARTATE AMINOTRANSFERASE 31 IU/L (<34); BILIRUBIN TOTAL 0.5 mg/dL (0.1-1.0); CALCIUM 9.9 mg/dL (8.7-10.4); CARBON DIOXIDE 27 mEq/L (21-32); CHLORIDE 102 mEq/L (98-107); CREATININE 0.9 mg/dL (0.6-1.0); GLUCOSE 87 mg/dL (70-105); POTASSIUM 3.4 mEq/L (3.5-5.1); PROTEIN TOTAL 8.8 g/dL (6.0-8.3); SODIUM 138 mEq/L (136-145); UREA NITROGEN BLOOD 12 mg/dL (9-23)
== END | disposition home or self-care (01) ==
LOC: LAB 14:08
PROVIDERS: ATTEND Internal Medicine Hematology & Oncology
DX: C50.412 Malignant neoplasm of upper-outer quadrant of left female breast (principal); D57.1 Sickle-cell disease without crisis
CPT/HCPCS: 36415; 80053; 85025; 86300

== ENCOUNTER 2023-10-28 18:19 | Emergency (ER) | payer MEDICARE, MEDICAID ==
[~2023-10-28] VITALS: Ht 165.1 cm; Wt 60.0 kg
[2023-10-28 18:25] VITALS: BP 163/91; PULSE 108; RESP 16; TEMP 98.6; O2SAT 100
[2023-10-28 19:27] LABS: BASOPHILS % 0.8 % (0.0-2.0); EOSINOPHILS % 1.4 % (0.0-5.0); HEMATOCRIT. 38.2 % (36.0-48.0); HEMOGLOBIN. 12.6 g/dL (12.0-16.0); LYMPHOCYTES % 41.5 % (20.0-50.0); MEAN CORPUSCULAR HEMOGLOBIN 29.5 pg (28.0-32.0); MEAN CORPUSCULAR HGB CONC 33.1 g/dL (31.0-37.0); MEAN CORPUSCULAR VOLUME 89.2 fL (81.0-99.0); MONOCYTES % 10.4 % (2.0-8.0); NEUTROPHILS % 45.9 % (40.0-76.0); PLATELET 317 x1000/uL (130-400); RED BLOOD CELL COUNT 4.29 mill/uL (4.2-5.4); RED CELL DISTRIBUTION WIDTH 14.5 % (11.6-14.6); WHITE BLOOD COUNT 5.4 x1000/uL (4.5-11.0)
[2023-10-28 19:29] LABS: CHLORIDE 106 mEq/L (98-107); SODIUM 139 mEq/L (136-145)
[2023-10-28 19:30] LABS: CALCIUM 9.8 mg/dL (8.7-10.4); CARBON DIOXIDE 25 mEq/L (21-32)
[2023-10-28 19:35] LABS: CREATININE 0.9 mg/dL (0.6-1.0); GLUCOSE 94 mg/dL (70-105)
[2023-10-28 19:36] LABS: UREA NITROGEN BLOOD 21 mg/dL (9-23)
[2023-10-28 19:37] LABS: ALANINE AMINOTRANSFERASE 31 IU/L (10-49); ALBUMIN 4.4 g/dL (3.2-4.8); ASPARTATE AMINOTRANSFERASE 27 IU/L (<34)
[2023-10-28 19:38] LABS: BILIRUBIN TOTAL 0.3 mg/dL (0.1-1.0)
[2023-10-28 19:50] LABS: BILIRUBIN DIRECT < 0.1 mg/dL (<=3.0)
[2023-10-28] MEDS: POTASSIUM CHLORIDE 20MEQ TABLET SR PO ONE (21:45)
[2023-10-28 22:02] LABS: CLARITY URINE CLEAR (CLEAR); COLOR URINE YELLOW (YELLOW); GLUCOSE URINE NEGATIVE (NEGATIVE); KETONES URINE NEGATIVE (NEGATIVE); LEUKOCYTE ESTERASE URINE NEGATIVE (NEGATIVE); NITRITE URINE NEGATIVE (NEGATIVE); OCCULT BLOOD URINE NEGATIVE (NEGATIVE); PROTEIN URINE NEGATIVE (NEGATIVE); SPECIFIC GRAVITY URINE 1.029 (1.005-1.030); UROBILINOGEN URINE 0.2 E.U./dL (0.2-1.0)
[2023-10-28] MEDS ORDERED: FAMO-135 MT (23:22)
[2023-10-28] MEDS: FAMOTIDINE 20MG TABLET PO ONE (23:56)
[2023-10-28] MEDS: ONDANSETRON 4MG ODT PO ONE (23:58)
== END 2023-10-29 01:09 | disposition home or self-care (01) ==
LOC: ER 20:49
DX: R14.0 Abdominal distension (gaseous) (principal); I11.0 Hypertensive heart disease with heart failure; I50.9 Heart failure, unspecified; Z85.9 Personal history of malignant neoplasm, unspecified; Z98.51 Tubal ligation status; Z79.899 Other long term (current) drug therapy
CPT/HCPCS: 99284; 74176; 80076; 80048; 81003; 83690; 85025; 36415; 93005; Q0162

== ENCOUNTER → 2023-11-14 | Outpatient (CLI) | payer MEDICARE, MEDICAID ==
[~2023-11-14] MED LIST changes: +BARIUM SULFATE 450ML ORAL SUSP ONE; +FAMO-135 MT
[2023-11-14 13:44] LABS: BASOPHILS % 1.1 % (0.0-2.0); EOSINOPHILS % 2.1 % (0.0-5.0); HEMATOCRIT. 39.1 % (36.0-48.0); HEMOGLOBIN. 12.9 g/dL (12.0-16.0); LYMPHOCYTES % 57.7 % (20.0-50.0); MEAN CORPUSCULAR HEMOGLOBIN 29.7 pg (28.0-32.0); MEAN PLATELET VOLUME 8.1 fl (7.4-10.4); MONOCYTES % 9.3 % (2.0-8.0); NEUTROPHILS % 29.8 % (40.0-76.0); PLATELET 263 x1000/uL (130-400); RED BLOOD CELL COUNT 4.34 mill/uL (4.2-5.4); RED CELL DISTRIBUTION WIDTH 14.3 % (11.6-14.6); WHITE BLOOD COUNT 4.4 x1000/uL (4.5-11.0)
[2023-11-14 13:52] LABS: CHLORIDE 102 mEq/L (98-107); POTASSIUM 3.4 mEq/L (3.5-5.1); SODIUM 139 mEq/L (136-145)
[2023-11-14 13:53] LABS: CALCIUM 9.9 mg/dL (8.7-10.4); CARBON DIOXIDE 31 mEq/L (21-32)
[2023-11-14 13:58] LABS: CREATININE 0.9 mg/dL (0.6-1.0); GLUCOSE 79 mg/dL (70-105); UREA NITROGEN BLOOD 7 mg/dL (9-23)
[2023-11-14 14:00] LABS: ALANINE AMINOTRANSFERASE 27 IU/L (10-49); ALBUMIN 4.7 g/dL (3.2-4.8); ASPARTATE AMINOTRANSFERASE 25 IU/L (<34); BILIRUBIN TOTAL 0.5 mg/dL (0.1-1.0); PROTEIN TOTAL 8.3 g/dL (6.0-8.3)
== END | disposition home or self-care (01) ==
LOC: CT 10:12
PROVIDERS: ATTEND Internal Medicine Hematology & Oncology
DX: C50.412 Malignant neoplasm of upper-outer quadrant of left female breast (principal); D57.1 Sickle-cell disease without crisis; M47.816 Spondylosis without myelopathy or radiculopathy, lumbar region; Z98.82 Breast implant status
CPT/HCPCS: 36415; 71250; 74176; 80053; 85025; 86300

== ENCOUNTER 2024-01-20 14:17 | Emergency (ER) | payer MEDICARE, MEDICAID ==
[~2024-01-20] VITALS: Ht 162.6 cm; Wt 46.0 kg
[~2024-01-20 14:17] MED LIST changes: -BARIUM SULFATE 450ML ORAL SUSP ONE; -POTA10CA83 MT; +POTA10CA93 MT; -SENN-257 PO; +SENN-362 PO
[2024-01-20 14:29] VITALS: O2SAT 96
[2024-01-20 16:01] LABS: BASOPHILS % 0.5 % (0.0-2.0); EOSINOPHILS % 1.2 % (0.0-5.0); HEMATOCRIT. 33.9 % (36.0-48.0); HEMOGLOBIN. 11.4 g/dL (12.0-16.0); LYMPHOCYTES % 30.8 % (20.0-50.0); MEAN CORPUSCULAR HEMOGLOBIN 30.2 pg (28.0-32.0); MEAN CORPUSCULAR HGB CONC 33.6 g/dL (31.0-37.0); MEAN CORPUSCULAR VOLUME 89.9 fL (81.0-99.0); MEAN PLATELET VOLUME 8.8 fl (7.4-10.4); MONOCYTES % 9.4 % (2.0-8.0); NEUTROPHILS % 58.1 % (40.0-76.0); PLATELET 181 x1000/uL (130-400); RED BLOOD CELL COUNT 3.77 mill/uL (4.2-5.4); RED CELL DISTRIBUTION WIDTH 13.9 % (11.6-14.6); WHITE BLOOD COUNT 6.1 x1000/uL (4.5-11.0)
[2024-01-20 16:11] LABS: INR 1.1; PROTHROMBIN TIME 11.9 sec (9.6-11.0)
[2024-01-20 16:16] LABS: TROPONIN I HIGH SENSITIVITY 32 ng/L (3.0-34)
[2024-01-20 16:34] LABS: CHLORIDE 102 mEq/L (98-107); SODIUM 137 mEq/L (136-145)
[2024-01-20 16:35] LABS: CARBON DIOXIDE 30 mEq/L (21-32)
[2024-01-20 16:36] LABS: CALCIUM 9.9 mg/dL (8.7-10.4)
[2024-01-20 16:40] LABS: CREATININE 0.8 mg/dL (0.6-1.0); GLUCOSE 85 mg/dL (70-105)
[2024-01-20 16:41] LABS: UREA NITROGEN BLOOD 13 mg/dL (9-23)
[2024-01-20 16:42] LABS: ALANINE AMINOTRANSFERASE 393 IU/L (10-49); ALBUMIN 4.3 g/dL (3.2-4.8); ASPARTATE AMINOTRANSFERASE 934 IU/L (<34)
[2024-01-20 16:43] LABS: BILIRUBIN TOTAL 0.9 mg/dL (0.1-1.0); PROTEIN TOTAL 7.3 g/dL (6.0-8.3)
[2024-01-20] MEDS: LIDOCAINE 5% PATCH TOP SCH (17:02)
[2024-01-20] MEDS: ACETAMINOPHEN 325MG TABLET PO ONE (17:02)
[2024-01-20] MEDS: KETOROLAC 15MG/ML VIAL IV ONE (17:02)
[2024-01-20 18:10] LABS: TROPONIN I HIGH SENSITIVITY 29 ng/L (3.0-34)
[2024-01-20 19:34] VITALS: BP 116/70; PULSE 70; RESP 14; TEMP 37.55856; O2SAT 96
== END 2024-01-20 20:07 | disposition home or self-care (01) ==
LOC: ER 14:17
DX: R55 Syncope and collapse (principal); I11.0 Hypertensive heart disease with heart failure; I50.9 Heart failure, unspecified; Z79.82 Long term (current) use of aspirin; Z88.8 Allergy status to other drugs, medicaments and biological substances; Z88.2 Allergy status to sulfonamides; Z88.5 Allergy status to narcotic agent; Z79.899 Other long term (current) drug therapy; Z98.890 Other specified postprocedural states; Z98.51 Tubal ligation status; Z90.10 Acquired absence of unspecified breast and nipple
CPT/HCPCS: 99285; 96374; 71045; 80053; 85025; 85610; 84484; 36415; 73502; 93005; J1885

== ENCOUNTER 2025-02-02 19:45 | Emergency (ER) | payer MEDICARE, MEDICAID ==
[~2025-02-02] VITALS: Ht 149.9 cm; Wt 50.0 kg
[~2025-02-02 19:45] MED LIST changes: +CARI-518 PO; -CARI350T28 PO; -DOCU-150 MT; +DOCU-422 MT; +IBUP-1455 MT; -IBUP-2029 MT
[2025-02-02 20:18] VITALS: O2SAT 98
[2025-02-02 20:21] VITALS: BP 123/56; PULSE 81; RESP 18; TEMP 37.1; O2SAT 99
[2025-02-02 21:37] LABS: BASOPHILS % 0.8 % (0.0-2.0); EOSINOPHILS % 3.1 % (0.0-5.0); HEMATOCRIT. 37.4 % (36.0-48.0); HEMOGLOBIN. 12.5 g/dL (12.0-16.0); LYMPHOCYTES % 39.2 % (20.0-50.0); MEAN PLATELET VOLUME 8.3 fl (7.4-10.4); MONOCYTES % 9.6 % (2.0-8.0); NEUTROPHILS % 47.3 % (40.0-76.0); PLATELET 261 x1000/uL (130-400); RED BLOOD CELL COUNT 4.31 mill/uL (4.2-5.4); RED CELL DISTRIBUTION WIDTH 14.2 % (11.6-14.6)
[2025-02-02 21:52] LABS: CREATININE 1.0 mg/dL (0.6-1.0); UREA NITROGEN BLOOD 10 mg/dL (9-23)
[2025-02-02 22:12] LABS: ASPARTATE AMINOTRANSFERASE 106 IU/L (<34); BILIRUBIN DIRECT < 0.1 mg/dL (<=3.0); BILIRUBIN TOTAL 0.3 mg/dL (0.1-1.0)
[2025-02-02 22:13] LABS: PROTEIN TOTAL 7.7 g/dL (6.0-8.3)
[2025-02-03] MEDS: POTASSIUM CHLORIDE 20MEQ/PACKET PO ONE (01:14)
[2025-02-03] MEDS: MORPHINE SULFATE 4 MG/ML INJ (FOR IV/IM USE) IV ONE (01:22)
[2025-02-03] MEDS: ONDANSETRON HCL 4MG/2ML INJ IV ONE (01:22)
== END 2025-02-03 02:05 | disposition home or self-care (01) ==
LOC: ER 19:45
DX: D57.00 Hb-SS disease with crisis, unspecified (principal); I11.0 Hypertensive heart disease with heart failure; I50.9 Heart failure, unspecified; Z79.899 Other long term (current) drug therapy; Z98.51 Tubal ligation status; Z90.10 Acquired absence of unspecified breast and nipple; Z91.013 Allergy to seafood; Z88.8 Allergy status to other drugs, medicaments and biological substances; Z88.2 Allergy status to sulfonamides
CPT/HCPCS: 99284; 71045; 80076; 80048; 83690; 85025; 85044; 36415; 96374; 96375; J2405; J2270